=== PATIENT | male | born 1965 | race Caucasian/White ===

== ENCOUNTER 2023-04-19 14:51 | Inpatient (IN) | payer OTHER, SELFPAY ==
[2023-04-19] VITALS (68 sets, daily range): BP systolic 94–151; BP diastolic 65–113; PULSE 83–201; RESP 10–32; TEMP 36.8–37.3; O2SAT 92–148; BMI 24.9; BMI 25.6
--- NOTE | 2023-04-19 15:28 | ECG_ITS ---
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
[2023-04-19 15:34] LABS: Basophils Percent Auto 0.7 % (0.2-2.0); Eosinophils Percent Auto 0.2 % (0.9-7.0); Hematocrit 44.2 % (42.0-54.0); Hemoglobin 15.7 g/dL (14.0-18.0); Immature Granulocytes Abs Auto 0.02 10^3/uL (0.00-0.03); Immature Granulocytes Pct Auto 0.3 % (0.0-0.5); Lymphocytes Absolute Auto 1.4 10^3/uL (1.2-3.8); Lymphocytes Percent Auto 23.6 % (20.5-60.0); Mean Corpuscular HGB Conc 35.5 g/dL (29.9-35.2); Mean Corpuscular Hemoglobin 31.4 pg (25.9-34.0); Mean Corpuscular Volume 88.4 fL (80.0-94.0); Mean Platelet Volume 10.5 fL (9.5-13.5); Monocytes Absolute Auto 0.6 10^3/uL (0.3-0.8); Monocytes Percent Auto 9.7 % (1.7-12.0); Neutrophils Absolute Auto 3.8 10^3/uL (1.4-6.5); Neutrophils Percent Auto 65.5 % (43.0-75.0); Platelet Count 216 10^3/uL (150-450); Red Cell Distribution Width 12.4 % (11.0-15.0); White Blood Count 5.9 10^3/uL (4.0-11.0)
[2023-04-19 15:51] LABS: Alanine Aminotransferase 61 U/L (16-63); Albumin Globulin Ratio 0.8; Albumin Level 3.2 g/dL (3.4-5.0); Alkaline Phosphatase 99 U/L (46-116); Anion Gap 18.7; Aspartate Amino Transferase 38 U/L (15-37); BUN Creatinine Ratio 12.3; Bilirubin Total 0.9 mg/dL (0.2-1.0); Calcium 9.5 mg/dL (8.5-10.1); Carbon Dioxide 23.2 mmol/L (21.0-32.0); Chloride 98 mmol/L (98-107); Estimated GFR (African America >60 (>=60); Estimated GFR (Non-African Ame >60 (>=60); Glucose 108 mg/dL (74-106); Sodium 137 mmol/L (136-145); Total Protein 7.2 g/dL (6.4-8.2)
[2023-04-19 15:52] LABS: Potassium 2.9 mmol/L (3.5-5.1)
--- NOTE | 2023-04-19 16:14 | XR_ITS ---
[address] [address] Patient Name: BERNIE CANO MRN: [id number] date: 1965 Sex: M Assigned Patient Location: ER Current Patient Location: ER Accession/Order Number: [id number] Exam Date: 04/19/2023 16:34 Report Date: 04/19/2023 16:51 At the request of: SOSA JOHNSON Procedure: XR chest 1V EXAMINATION: XR chest 1V HISTORY: Atrial fibrillation COMPARISON: None. TECHNIQUE: Portable chest FINDINGS: The lung parenchyma is free of consolidation or infiltrate. No pneumothorax or pleural effusion. The cardiac, mediastinal and hilar contours are normal. The visualized osseous structures exhibit no gross abnormality. IMPRESSION: No acute cardiopulmonary abnormality. Electronically authenticated by: KAPIL BAILEY Date: 04/19/2023 16:51
--- NOTE | 2023-04-19 16:16 | ED.GENADUL1 ---
HPI - General Adult General Chief complaint: Extremity Injury, Lower Stated complaint: lower extremity pain Time Seen by Provider: 04/19/23 15:28 Source: patient Mode of arrival: walk-in History of Present Illness HPI narrative: chest fluttering and lower leg swelling has been present for some time . He had an episode of fluttering again last night and this morning and decided to come tot he ED fore valuation. he has no PCP. He takes no meds. he denied any prior medical history except rectal bleeding for which he saw a general surgeon and was supposed to have a colonoscopy - but it hasn't been scehduled yet. He and the said that no blood testing was done by the surgeon. He admits to some exertional shortness of breath. Related Data Home Medications Medication Instructions Recorded Confirmed No Known Home Medications 04/19/23 04/19/23 Allergies Allergy/AdvReac Type Severity Reaction Status Date / Time No Known Drug Allergies Allergy Verified 04/19/23 14:57 [facility] Medical History (Updated 04/19/23 @ 17:08 by Florencio Dempsey) Exam Narrative Exam Narrative: Nurses notes and vital signs reviewed and patient is not hypoxic. afebrile General: Well-appearing and in no apparent distress. Skin: Warm, dry, no pallor noted. No rash. Head: Normocephalic, atraumatic. Neck: Supple, non-tender. Eye: Pupils are equal, round and EOMI. No scleral icterus. Ears, Nose, Mouth, and Throat: TM are clear, no nasal mucosal hypertrophy. Oral mucosa is moist, no posterior oropharynx erythema, uvula is mid-line Cardiovascular: atrial fibrillation with short runs that are rapid. Respiratory: No accessory muscle use or respiratory distress. Lungs are clear to auscultation, no wheezing, rales or rhonchi Musculoskeletal: normal ROM, no calf or popliteal tenderness. Bilateral lower extremity edema/swelling GI: Abdomen is soft, non-distended. Normal bowel sounds. No tenderness to palpation. No rebound, guarding, or rigidity noted. Neurological: A&O x4. No cranial nerve dysfunction observed. No truncal ataxia. Moves all extremities. Sensation intact. Psychiatric: Cooperative and interactive. Normal mood and affect. Constitutional Vital Signs - 24 hr 04/19/23 14:58 04/19/23 15:14 04/19/23 15:18 Temperature 98.2 F Pulse Rate Pulse Rate [Monitor] 160 H 153 H Respiratory Rate 24 Blood Pressure Blood Pressure [Left Arm] 136/80 H Pulse Oximetry 100 98 Oxygen Delivery Method Room Air Nasal Cannula Oxygen Delivery Flow Rate 3 04/19/23 15:01 04/19/23 15:06 04/19/23 15:06 Temperature Pulse Rate Pulse Rate [Monitor] Respiratory Rate 26 H 20 Blood Pressure Blood Pressure [Left Arm] Pulse Oximetry 99 99 99 Oxygen Delivery Method Oxygen Delivery Flow Rate 04/19/23 15:17 04/19/23 15:17 04/19/23 16:03 Temperature Pulse Rate 113 H 113 H Pulse Rate [Monitor] Respiratory Rate 16 15 21 Blood Pressure 127/92 H 126/81 H Blood Pressure [Left Arm] Pulse Oximetry 99 99 98 Oxygen Delivery Method Oxygen Delivery Flow Rate 3 04/19/23 16:00 04/19/23 16:25 04/19/23 16:00 Temperature Pulse Rate 117 H 117 H Pulse Rate [Monitor] Respiratory Rate 21 13 Blood Pressure 126/81 H 129/96 H 126/81 H Blood Pressure [Left Arm] Pulse Oximetry 99 99 Oxygen Delivery Method Oxygen Delivery Flow Rate 04/19/23 16:20 04/19/23 16:25 Temperature Pulse Rate 133 H 90 Pulse Rate [Monitor] Respiratory Rate 10 L 19 Blood Pressure 129/96 H 116/83 H Blood Pressure [Left Arm] Pulse Oximetry 98 98 Oxygen Delivery Method Oxygen Delivery Flow Rate Course Vital Signs Vital signs: Vital Signs Temperature 98.2 F 04/19/23 14:58 Pulse Rate 160 H 04/19/23 14:58 Respiratory Rate 24 04/19/23 14:58 Blood Pressure 136/80 H 04/19/23 14:58 Pulse Oximetry 100 04/19/23 14:58 Oxygen Delivery Method Room Air 04/19/23 14:58 Temperature 98.2 F 04/19/23 14:58 Pulse Rate 90 04/19/23 16:25 Respiratory Rate 19 04/19/23 16:25 Blood Pressure 116/83 H 04/19/23 16:25 Pulse Oximetry 98 04/19/23 16:25 Oxygen Delivery Method Nasal Cannula 04/19/23 15:18 Oxygen Delivery Flow Rate 3 04/19/23 16:03 Medical Decision Making MDM Narrative Medical decision making narrative: 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 Blood drawn and sent for evaluation. chest x-ray was obtained. EKG revealed revealed patient to be in rapid atrial fibrillation. This is a new diagnosis for him. BNP was elevated. Troponin was . He was ordered to receive IV Cardizem. He was also ordered to receive IV Lasix. His afib wasn't affected so he was ordered to be placed on cardizem drip. He is also getting a Lovenox injection SQ. He'll need to be admitted for evaluation of this new onset atrial fibrillation. Case discussed with Dr Chen and the patient will be admitted to the ICU. Patient and informed of the results, diagnosis and need for admission. When I informed them of the admission, the told me that the patient is a daily beer drinker - 10 to 12 beers a day - and has never stopped - even for a day. Nurses will ensure the patietn is evaluated for risk of alcohol withdrawl. Lab Data Lab results reviewed: Yes I reviewed the patient's lab results Labs: Lab Results 04/19/23 Range/Units 15:08 WBC 5.9 (4.0-11.0) 10^3/uL RBC 5.00 (4.70-6.10) 10^6/uL Hgb 15.7 (14.0-18.0) g/dL Hct 44.2 (42.0-54.0) % MCV 88.4 (80.0-94.0) fL MCH 31.4 (25.9-34.0) pg MCHC 35.5 H (29.9-35.2) g/dL RDW 12.4 (11.0-15.0) % Plt Count 216 (150-450) 10^3/uL MPV 10.5 (9.5-13.5) fL Neut % (Auto) 65.5 (43.0-75.0) % Lymph % (Auto) 23.6 (20.5-60.0) % [place] % (Auto) 9.7 (1.7-12.0) % Eos % (Auto) 0.2 L (0.9-7.0) % Baso % (Auto) 0.7 (0.2-2.0) % Neut # (Auto) 3.8 (1.4-6.5) 10^3/uL Lymph # (Auto) 1.4 (1.2-3.8) 10^3/uL [place] # (Auto) 0.6 (0.3-0.8) 10^3/uL Eos # (Auto) 0.0 (0.0-0.7) 10^3/uL Baso # (Auto) 0.0 (0.0-0.1) 10^3/uL Abs Immat Gran (auto) 0.02 (0.00-0.03) 10^3/uL Imm/Tot Granulo (auto) 0.3 (0.0-0.5) % Sodium 137 (136-145) mmol/L Potassium 2.9 L* (3.5-5.1) mmol/L Chloride 98 (98-107) mmol/L Carbon Dioxide 23.2 (21.0-32.0) mmol/L Anion Gap 18.7 BUN 14.0 (7.0-18.0) mg/dL Creatinine 1.14 (0.70-1.30) mg/dL Est GFR ( Amer) >60 (>=60) Est GFR (Non-Af Amer) >60 (>=60) BUN/Creatinine Ratio 12.3 Glucose 108 H (74-106) mg/dL Calcium 9.5 (8.5-10.1) mg/dL Total Bilirubin 0.9 (0.2-1.0) mg/dL AST 38 H (15-37) U/L ALT 61 (16-63) U/L Alkaline Phosphatase 99 (46-116) U/L Troponin I High Sens 24.6 (4.0-76.1) pg/mL NT-Pro-B Natriuret Pep 2012.0 H* (<=900.0) pg/mL Total Protein 7.2 (6.4-8.2) g/dL Albumin 3.2 L (3.4-5.0) g/dL Globulin 4.0 g/dL Albumin/Globulin Ratio 0.8 ECG Data Interpretation: EKG interpretation: Emergency Department physician interpretation. Normal sinus rhythm at 142bpm. abnormal right axis deviation. Nonspecific T-wave changes. PVCs noted. No ST segment elevation or depression. Discharge Plan Discharge Chief Complaint: Extremity Injury, Lower Clinical Impression: New onset atrial fibrillation, Edema, peripheral Patient Disposition: Admitted As Inpatient Time of Disposition Decision: 17:07 Prescriptions / Home Meds: No Action No Known Home Medications Referrals: Physician,Non-Staff, MD [Primary Care Provider] - 1 week
[2023-04-19] MEDS: FUROSEMIDE 40 MG/4 ML VIAL IVP ×2 (16:25→19:16)
[2023-04-19] MEDS: DILTIAZEM HCL 25 MG/5 ML VIAL 20 MG IV (16:25)
[2023-04-19 16:31] LABS: Troponin I High Sensitivity 24.6 pg/mL (4.0-76.1)
[2023-04-19] MEDS: POTASSIUM CHLORIDE 10 MEQ ER TABLET 40 MEQ PO (16:43)
[2023-04-19] MEDS: dilTIAZem HCL 125 MG in 0.9 % SODIUM CHLORIDE 100 ML IV (17:15)
[2023-04-19] MEDS: ENOXAPARIN SODIUM 80 MG/0.8 ML SYRINGE SUBQ (17:16)
--- NOTE | 2023-04-19 17:30 | CA_ITS ---
Patient: BERNIE CANO Exam Date: 04/21/2023 : 1965 Gender:M Ordering : DR Shahab Chen . Admission #: [id number] Family : Order #: [id number] CLICK HERE TO VIEW EXAM ECHOCARDIOGRAM REPORT PROCEDURE: CA ECHO DOPPLER COMPLETE INDICATIONS: afib, leg edema COMPARISON: None. DESCRIPTION: COMPLETE ECHOCARDIOGRAM Real-time transthoracic echocardiography with 2D, M-mode, spectral and color flow Doppler performed. QUALITY: Technical quality was good. LEFT VENTRICLE: Normal chamber size. Normal left ventricular wall thickness. LV EF: Global left ventricular systolic function is moderately to severely reduced; visually estimated ejection fraction is 25 to 30%. Global hypokinesis. DIASTOLIC: Not adequately assessed due to heart rhythm. ATRIAL SEPTUM: Inadequately seen. LEFT ATRIUM: Severe dilatation. RIGHT ATRIUM: Severe dilatation. RIGHT VENTRICLE: Moderate dilatation. Severely decreased right ventricular systolic function. TRICUSPID VALVE: Normal mobility and thickness. Moderate to severe regurgitation. Moderate pulmonary hypertension. RVSP 48mmHg MITRAL VALVE: Mildly thickened with normal mobility. No evidence of mitral valve stenosis. There is no mitral annular calcification. Moderate to severe mitral regurgitation. AORTIC VALVE: Normal trileaflet appearance. Thickened aortic valve. Normal leaflet mobility. No evidence of aortic valve stenosis. Trivial aortic regurgitation. AORTIC ROOT: Normal diameter and appearance. PULMONIC VALVE: Normal thickness and mobility. No stenosis. Trivial regurgitation. PERICARDIUM: No evidence of pericardial effusion. IVC: Partial collapse with mild dilatation measuring 2.6cm CONCLUSION: 1. Global left ventricular systolic function is moderately to severely reduced; visually estimated ejection fraction is 25 to 30% 2. Severe biatrial enlargement 3. The right ventricle is moderately dilated with severely reduced systolic function 4. Moderate to severe tricuspid regurgitation 5. Moderately elevated right ventricular systolic pressure; RVSP 40 mmHg 6. Moderate to severe mitral regurgitation Adult Echocardiography Procedure Report Left Ventricle LVEDD (3.7 - 5.6 cm): 5.64 cm LVESD (2.2 - 4.0 cm): 4.57 cm LVIVS thickness (0.6 - 1.2 cm): 0.87 cm LVPW thickness (0.5 - 1.0 cm): 0.92 cm e': 0.08 m/s E - e': 13.74 LVOT Max Gradient: 1.09 mm[Hg] LVOT Area (cm2): 0.52 m/s Peak Velocity (LVOT): 0.52 m/s Mean Velocity (LVOT): 0.40 m/s LVOT Diameter 1.73 cm Left Atrium LA Volume Index (2D A2C): 73.54 ml/m2 Left Atrium Systolic Dimension: 4.51 cm Mitral Valve Mitral Valve E-Wave Peak Velocity: 1.08 m/s Right Ventricle RV Internal Diastolic Dimension: 4.71 cm Aorta AO Root Diam: 2.76 cm Ascending Ao Diam: 2.83 cm Aortic Valve AoV Area (Peak Jordan): 1.23 cm2, 1.23 cm2 AoV Area (VTI): 1.15 cm2, 1.15 cm2 Deceleration [place]: 1.09 m/s2 Pressure Half-Time: 859.33 ms Peak Velocity(Antegrade Flow): 1.00 m/s Peak Gradient(Antegrade Flow): 3.97 mm[Hg] Mean Velocity(Antegrade Flow): 0.73 m/s Mean Gradient(Antegrade Flow): 2.35 mm[Hg] Velocity Time Integral: 14.80 cm Tricuspid Valve Peak Velocity (Regurgitant Flow): 2.85 m/s, 2.69 m/s, 2.55 m/s Pulmonic Valve Peak Velocity: 0.50 m/s Peak Gradient: 1.17 mm[Hg], 0.84 mm[Hg] Right Atrium Right Atrium Systolic Pressure: 127.26 ml, 127.26 ml Dictated by: Lisa Pelaez M.D. on 04/24/2023 at 12:47 Approved by: Lisa Pelaez M.D. on 04/24/2023 at 12:52
[2023-04-19] MEDS: DILTIAZEM HCL 25 MG/5 ML VIAL IV (17:39)
[2023-04-20] VITALS (27 sets, daily range): BP systolic 101–137; BP diastolic 69–91; PULSE 69–115; RESP 12–25; O2SAT 91–97
[2023-04-20] MEDS: dilTIAZem HCL 125 MG in 0.9 % SODIUM CHLORIDE 100 ML 15 MG IV ×3 (01:30→17:01)
[2023-04-20 05:35] LABS: Basophils Absolute Auto 0.1 10^3/uL (0.0-0.1); Basophils Percent Auto 0.8 % (0.2-2.0); Eosinophils Absolute Auto 0.1 10^3/uL (0.0-0.7); Eosinophils Percent Auto 1.1 % (0.9-7.0); Hematocrit 42.3 % (42.0-54.0); Hemoglobin 14.6 g/dL (14.0-18.0); Immature Granulocytes Abs Auto 0.01 10^3/uL (0.00-0.03); Immature Granulocytes Pct Auto 0.2 % (0.0-0.5); Lymphocytes Absolute Auto 1.7 10^3/uL (1.2-3.8); Lymphocytes Percent Auto 26.1 % (20.5-60.0); Mean Corpuscular HGB Conc 34.5 g/dL (29.9-35.2); Mean Corpuscular Hemoglobin 31.2 pg (25.9-34.0); Mean Corpuscular Volume 90.4 fL (80.0-94.0); Mean Platelet Volume 10.7 fL (9.5-13.5); Monocytes Absolute Auto 0.8 10^3/uL (0.3-0.8); Monocytes Percent Auto 12.4 % (1.7-12.0); Neutrophils Percent Auto 59.4 % (43.0-75.0); Platelet Count 211 10^3/uL (150-450); Red Blood Count 4.68 10^6/uL (4.70-6.10); Red Cell Distribution Width 12.5 % (11.0-15.0); White Blood Count 6.6 10^3/uL (4.0-11.0)
[2023-04-20 05:58] LABS: Anion Gap 12.9; BUN Creatinine Ratio 11.5; Calcium 9.1 mg/dL (8.5-10.1); Carbon Dioxide 28.1 mmol/L (21.0-32.0); Chloride 99 mmol/L (98-107); Chol HDL Ratio 2.2; Cholesterol 142 mg/dL (<=200); Estimated GFR (African America >60 (>=60); Estimated GFR (Non-African Ame >60 (>=60); Glucose 107 mg/dL (74-106); HDL Cholesterol 65 mg/dL (40-60); Sodium 137 mmol/L (136-145); Triglycerides 79 mg/dL (<=150); VLDL CHOLESTEROL 15.8 mg/dL
--- NOTE | 2023-04-20 06:00 | ECG_ITS ---
[facility] Test Date: 2023-04-20 Pat Name: Reinier Garcia Department: Room: 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
--- NOTE | 2023-04-20 06:30 | XR_ITS ---
[address] [address] Patient Name: BERNIE CANO MRN: [id number] date: 1965 Sex: M Assigned Patient Location: ICU Current Patient Location: ICU Accession/Order Number: [id number] Exam Date: 04/20/2023 06:15 Report Date: 04/20/2023 08:22 At the request of: ASIF HARRELL Procedure: XR chest 2V Exam: Radiographs: XR chest 2V Reason for exam: leg edema Comparison: Chest x-ray from yesterday IMPRESSION: Small amount of atelectasis, infiltrate or scarring in the left lung base. Hyperinflation and probable emphysematous changes throughout both lungs. Pulmonary venous hypertension. Cardiomegaly. Chronic appearing lower thoracic compression fracture with mild height loss. Remainder unremarkable. Electronically authenticated by: FAISAL POLLARD Date: 04/20/2023 08:22
[2023-04-20] MEDS: dilTIAZem HCL 125 MG in 0.9 % SODIUM CHLORIDE 100 ML IV (10:13)
[2023-04-20] MEDS: FUROSEMIDE 40 MG/4 ML VIAL IVP ×2 (12:44→21:57)
--- NOTE | 2023-04-20 13:58 | P.HP_ITS ---
H&P: HPI History of Present Illness Chief complaint: lower extremity pain, NEW ONSET A-FIB WITH RVR Narrative: 57 y/o male with no significant past medical history presents to ER with leg swelling and heart racing. Reports palpitations off and on for about 1 week. Initially mild and only lasted few minutes. Noticed heart racing and mild discomfort in chest. Mild SOB. Not lightheaded and no diaphoresis. Symptoms persisted overnight and in am noticed severe swelling of both feet. To ER and found rapid afib. Chest x-ray normal but BNP elevated. Given IV cardizem and lasix. Pulse improved but still elevated and admitted. Started cardizem drip and IV lasix. Improved overnight and less edema. Remains in afib but normal pulse. Review of Systems ROS Constitutional Denies: fever, chills or night sweats Cardiovascular Reports: chest pain, palpitations and edema; Denies: lightheadedness Respiratory Denies: shortness of breath, cough or wheezing Gastrointestinal Denies: abdominal pain, nausea, vomiting or diarrhea Genitourinary Denies: painful urination [facility] Medical History (Updated 04/20/23 @ 08:51 by Shahab Chen MD) Surgical History (Updated 04/19/23 @ 18:18 by Palmira Stevens RN) Family History (Updated 04/19/23 @ 18:19 by Palmira Stevens RN) Mother Family history of cancer Social History (Updated 04/19/23 @ 18:22 by Palmira Stevens RN) Within the past year, how often did you have a drink containing alcohol: 4 or more times a week Within the past year, how many standard drinks containing alcohol did you have on a typical day: 10 or more Within the past year, how often did you have six or more drinks on one occasion: daily or almost daily Total score: 12 Score interpretation: A score of 4 or more indicates drinking is likely to affect patient's safety. Smoking status: Current every day smoker Non-prescribed substance use: denies use Highest level of school completed/degree received: 12th grade, no diploma Are you now , , , , never or living with a partner: In a typical week, how many times do you talk on the telephone with family, friends, or neighbors: 3 or more times per week How often do you get together with friends or relatives: twice per week How often do you attend religious or hinduism services: never Do you belong to any clubs or organizations such as religious groups unions, fraternal or athletic groups, or school groups: no Total score: 1 Score interpretation: A score of less than or equal to 1 indicates the most socially isolated. Little interest or pleasure in doing things: not at all Feeling down, depressed, or hopeless: not at all Feel stressed/tense/nervous/anxious/difficulty sleeping: not at all Do you think of yourself as: straight/heterosexual Gender Identity: male Meds Home Medications and Allergies Home Medications Medication Instructions Recorded Confirmed Type No Known Home Medications 04/19/23 04/19/23 History Allergies Allergy/AdvReac Type Severity Reaction Status Date / Time No Known Drug Allergies Allergy Verified 04/19/23 14:57 Exam Constitutional Vital Signs - 24 hr 04/19/23 14:58 04/19/23 15:14 04/19/23 15:18 Temperature 98.2 F Pulse Rate Pulse Rate [Monitor] 160 H 153 H Respiratory Rate 24 Blood Pressure Blood Pressure [Left Arm] 136/80 H Pulse Oximetry 100 98 Oxygen Delivery Method Room Air Nasal Cannula Oxygen Delivery Flow Rate 3 04/19/23 15:01 04/19/23 15:06 04/19/23 15:06 Temperature Pulse Rate Pulse Rate [Monitor] Respiratory Rate 26 H 20 Blood Pressure Blood Pressure [Left Arm] Pulse Oximetry 99 99 99 Oxygen Delivery Method Oxygen Delivery Flow Rate 04/19/23 15:17 04/19/23 15:17 04/19/23 16:03 Temperature Pulse Rate 113 H 113 H Pulse Rate [Monitor] Respiratory Rate 16 15 21 Blood Pressure 127/92 H 126/81 H Blood Pressure [Left Arm] Pulse Oximetry 99 99 98 Oxygen Delivery Method Oxygen Delivery Flow Rate 3 04/19/23 16:00 04/19/23 16:25 04/19/23 16:00 Temperature Pulse Rate 117 H 117 H Pulse Rate [Monitor] Respiratory Rate 21 13 Blood Pressure 126/81 H 129/96 H 126/81 H Blood Pressure [Left Arm] Pulse Oximetry 99 99 Oxygen Delivery Method Oxygen Delivery Flow Rate 04/19/23 16:20 04/19/23 16:25 04/19/23 17:15 Temperature Pulse Rate 133 H 90 Pulse Rate [Monitor] Respiratory Rate 10 L 19 Blood Pressure 129/96 H 116/83 H 117/79 Blood Pressure [Left Arm] Pulse Oximetry 98 98 Oxygen Delivery Method Oxygen Delivery Flow Rate 04/19/23 16:25 04/19/23 16:31 04/19/23 16:35 Temperature Pulse Rate 111 H 96 H 137 H Pulse Rate [Monitor] Respiratory Rate 15 17 19 Blood Pressure 116/83 H 108/76 115/86 H Blood Pressure [Left Arm] Pulse Oximetry 99 98 99 Oxygen Delivery Method Oxygen Delivery Flow Rate 04/19/23 16:40 04/19/23 16:46 04/19/23 16:50 Temperature Pulse Rate 163 H 151 H 113 H Pulse Rate [Monitor] Respiratory Rate 32 H 13 16 Blood Pressure 102/69 151/113 H 139/93 H Blood Pressure [Left Arm] Pulse Oximetry 95 100 99 Oxygen Delivery Method Oxygen Delivery Flow Rate 04/19/23 16:55 04/19/23 17:01 04/19/23 17:06 Temperature Pulse Rate 138 H 189 H 134 H Pulse Rate [Monitor] Respiratory Rate 22 11 L 14 Blood Pressure 102/78 125/100 H 139/81 H Blood Pressure [Left Arm] Pulse Oximetry 100 99 99 Oxygen Delivery Method Oxygen Delivery Flow Rate 04/19/23 17:10 04/19/23 17:15 04/19/23 17:23 Temperature Pulse Rate 156 H 183 H Pulse Rate [Monitor] Respiratory Rate 12 17 Blood Pressure 122/102 H 117/79 117/79 Blood Pressure [Left Arm] Pulse Oximetry 99 98 Oxygen Delivery Method Oxygen Delivery Flow Rate 04/19/23 17:15 04/19/23 17:22 04/19/23 17:25 Temperature Pulse Rate 173 H 201 H 185 H Pulse Rate [Monitor] Respiratory Rate 22 13 Blood Pressure 117/79 Blood Pressure [Left Arm] Pulse Oximetry 96 92 L 100 Oxygen Delivery Method Oxygen Delivery Flow Rate 04/19/23 17:30 04/19/23 17:30 04/19/23 17:30 Temperature Pulse Rate 155 H 170 H 162 H Pulse Rate [Monitor] Respiratory Rate Blood Pressure 129/80 H 129/80 H Blood Pressure [Left Arm] Pulse Oximetry 97 96 97 Oxygen Delivery Method Oxygen Delivery Flow Rate 04/19/23 17:36 04/19/23 17:39 04/19/23 17:36 Temperature Pulse Rate 144 H 95 H Pulse Rate [Monitor] Respiratory Rate Blood Pressure 109/65 109/65 109/65 Blood Pressure [Left Arm] Pulse Oximetry 96 97 Oxygen Delivery Method Oxygen Delivery Flow Rate 04/19/23 18:02 04/19/23 18:09 04/19/23 18:09 Temperature Pulse Rate 96 H 131 H 100 H Pulse Rate [Monitor] Respiratory Rate Blood Pressure 94/80 H Blood Pressure [Left Arm] Pulse Oximetry 97 Oxygen Delivery Method Oxygen Delivery Flow Rate 04/19/23 18:12 04/19/23 18:20 04/19/23 18:20 Temperature 99.2 F Pulse Rate 137 H 84 Pulse Rate [Monitor] 100 H Respiratory Rate 16 Blood Pressure 127/85 H Blood Pressure [Left Arm] 131/89 H Pulse Oximetry 98 97 96 Oxygen Delivery Method Room Air Room Air Oxygen Delivery Flow Rate 04/19/23 19:16 04/19/23 21:02 04/19/23 22:52 Temperature Pulse Rate 121 H Pulse Rate [Monitor] 93 H Respiratory Rate Blood Pressure 135/85 H Blood Pressure [Left Arm] Pulse Oximetry Oxygen Delivery Method Oxygen Delivery Flow Rate 04/19/23 22:52 04/20/23 00:00 04/19/23 18:12 Temperature Pulse Rate 93 H 96 H Pulse Rate [Monitor] Respiratory Rate 20 14 14 Blood Pressure 127/85 H Blood Pressure [Left Arm] Pulse Oximetry 96 96 Oxygen Delivery Method Room Air Oxygen Delivery Flow Rate 04/19/23 18:25 04/19/23 18:30 04/19/23 18:40 Temperature Pulse Rate 87 117 H 123 H Pulse Rate [Monitor] Respiratory Rate 17 Blood Pressure 126/89 H 131/89 H 144/108 H Blood Pressure [Left Arm] Pulse Oximetry 97 Oxygen Delivery Method Oxygen Delivery Flow Rate 04/19/23 18:51 04/19/23 19:02 04/19/23 19:10 Temperature Pulse Rate 97 H 87 94 H Pulse Rate [Monitor] Respiratory Rate 19 20 23 Blood Pressure 131/79 H 140/95 H 135/85 H Blood Pressure [Left Arm] Pulse Oximetry 99 95 96 Oxygen Delivery Method Oxygen Delivery Flow Rate 04/19/23 19:21 04/19/23 19:30 04/19/23 19:41 Temperature Pulse Rate 104 H 105 H Pulse Rate [Monitor] Respiratory Rate 17 20 Blood Pressure 128/88 H 126/86 H 151/89 H Blood Pressure [Left Arm] Pulse Oximetry 97 Oxygen Delivery Method Oxygen Delivery Flow Rate 04/19/23 19:51 04/19/23 20:00 04/19/23 20:10 Temperature Pulse Rate 109 H 113 H 110 H Pulse Rate [Monitor] Respiratory Rate 27 H 18 16 Blood Pressure 129/99 H 119/79 118/82 H Blood Pressure [Left Arm] Pulse Oximetry Oxygen Delivery Method Oxygen Delivery Flow Rate 04/19/23 20:20 04/19/23 20:30 04/19/23 20:41 Temperature Pulse Rate 101 H 94 H 85 Pulse Rate [Monitor] Respiratory Rate 15 18 17 Blood Pressure 128/87 H 129/82 H 117/88 H Blood Pressure [Left Arm] Pulse Oximetry Oxygen Delivery Method Oxygen Delivery Flow Rate 04/19/23 20:50 04/19/23 21:00 04/19/23 21:10 Temperature Pulse Rate 133 H 112 H 139 H Pulse Rate [Monitor] Respiratory Rate 20 21 20 Blood Pressure 112/86 H 112/79 123/81 H Blood Pressure [Left Arm] Pulse Oximetry Oxygen Delivery Method Oxygen Delivery Flow Rate 04/19/23 21:20 04/19/23 21:30 04/19/23 21:40 Temperature Pulse Rate 99 H 100 H 153 H Pulse Rate [Monitor] Respiratory Rate 17 17 18 Blood Pressure 119/70 125/86 H 119/84 H Blood Pressure [Left Arm] Pulse Oximetry Oxygen Delivery Method Oxygen Delivery Flow Rate 04/19/23 21:50 04/19/23 22:00 04/19/23 22:10 Temperature Pulse Rate 101 H 117 H 88 Pulse Rate [Monitor] Respiratory Rate 20 18 16 Blood Pressure 114/86 H 111/78 111/82 H Blood Pressure [Left Arm] Pulse Oximetry Oxygen Delivery Method Oxygen Delivery Flow Rate 04/19/23 22:20 04/19/23 22:30 04/19/23 22:41 Temperature Pulse Rate 97 H 99 H 92 H Pulse Rate [Monitor] Respiratory Rate 15 20 15 Blood Pressure 122/78 H 121/78 H 103/71 Blood Pressure [Left Arm] Pulse Oximetry Oxygen Delivery Method Oxygen Delivery Flow Rate 04/19/23 22:50 04/19/23 23:00 04/19/23 23:10 Temperature Pulse Rate 94 H 106 H 117 H Pulse Rate [Monitor] Respiratory Rate 21 23 25 H Blood Pressure 115/76 106/74 114/80 H Blood Pressure [Left Arm] Pulse Oximetry Oxygen Delivery Method Oxygen Delivery Flow Rate 04/19/23 23:20 04/19/23 23:30 04/19/23 23:34 Temperature Pulse Rate 108 H 83 83 Pulse Rate [Monitor] Respiratory Rate 15 15 20 Blood Pressure 112/68 113/75 106/75 Blood Pressure [Left Arm] Pulse Oximetry 97 94 L Oxygen Delivery Method Oxygen Delivery Flow Rate 04/20/23 00:01 04/20/23 01:00 04/20/23 02:00 Temperature Pulse Rate 96 H 78 84 Pulse Rate [Monitor] Respiratory Rate 15 19 Blood Pressure 111/75 114/78 Blood Pressure [Left Arm] Pulse Oximetry 94 L 95 Oxygen Delivery Method Oxygen Delivery Flow Rate 04/20/23 04:00 04/20/23 01:00 04/20/23 02:00 Temperature Pulse Rate 76 74 80 Pulse Rate [Monitor] Respiratory Rate 18 18 Blood Pressure 114/78 105/71 Blood Pressure [Left Arm] Pulse Oximetry 91 L 96 Oxygen Delivery Method Oxygen Delivery Flow Rate 04/20/23 03:00 04/20/23 04:00 04/20/23 04:00 Temperature Pulse Rate 81 76 81 Pulse Rate [Monitor] Respiratory Rate 13 22 16 Blood Pressure 130/88 H 107/72 107/72 Blood Pressure [Left Arm] Pulse Oximetry 97 96 Oxygen Delivery Method Oxygen Delivery Flow Rate 04/20/23 04:00 04/20/23 08:31 04/20/23 08:31 Temperature Pulse Rate 78 86 Pulse Rate [Monitor] 75 Respiratory Rate 18 16 Blood Pressure 107/72 Blood Pressure [Left Arm] Pulse Oximetry 92 L Oxygen Delivery Method Oxygen Delivery Flow Rate 04/20/23 10:13 04/20/23 12:44 04/20/23 04:00 Temperature Pulse Rate 72 Pulse Rate [Monitor] Respiratory Rate 14 Blood Pressure 122/81 H 102/77 107/72 Blood Pressure [Left Arm] Pulse Oximetry 96 Oxygen Delivery Method Oxygen Delivery Flow Rate 04/20/23 08:25 04/20/23 09:00 04/20/23 10:01 Temperature Pulse Rate 74 69 105 H Pulse Rate [Monitor] Respiratory Rate 17 13 23 Blood Pressure 110/72 109/69 122/81 H Blood Pressure [Left Arm] Pulse Oximetry 92 L Oxygen Delivery Method Oxygen Delivery Flow Rate 04/20/23 11:00 04/20/23 12:00 07/02/23 13:00 Temperature Pulse Rate 85 100 H 95 H Pulse Rate [Monitor] Respiratory Rate 19 19 18 Blood Pressure 107/77 102/77 118/80 H Blood Pressure [Left Arm] Pulse Oximetry 95 97 94 L Oxygen Delivery Method Oxygen Delivery Flow Rate Documenting provider has reviewed patient's vital signs: yes Common normals: no apparent distress, oriented x3 and alert HENMT Common normals: normocephalic Eye Common normals: PERRL and EOMs intact bilaterally Respiratory Common normals: normal respiratory effort and clear to auscultation bilaterally Cardio Common normals: regular rate, no gallops, no murmurs and no rub Rhythm: abnormal rhythm irregularly irregular GI Common normals: Normal to inspection, nondistended, normoactive bowel sounds present and non-tender Extremity General: edema (1+ bipedal edema) Results Labs Labs: Short CBC 04/19/23 04/20/23 Range/Units 15:08 04:23 WBC 5.9 6.6 (4.0-11.0) 10^3/uL Hgb 15.7 14.6 (14.0-18.0) g/dL Hct 44.2 42.3 (42.0-54.0) % Plt Count 216 211 (150-450) 10^3/uL BMP 04/19/23 04/20/23 15:08 04:23 Sodium 137 137 Potassium 2.9 L* 3.0 L Chloride 98 99 Carbon Dioxide 23.2 28.1 BUN 14.0 13.0 Creatinine 1.14 1.13 Glucose 108 H 107 H Calcium 9.5 9.1 Liver Function 04/19/23 Range/Units 15:08 Total Bilirubin 0.9 (0.2-1.0) mg/dL AST 38 H (15-37) U/L ALT 61 (16-63) U/L Alkaline Phosphatase 99 (46-116) U/L Albumin 3.2 L (3.4-5.0) g/dL Assessment and Plan Assessment and Plan (1) Rapid atrial fibrillation: (2) Edema, peripheral: (3) Hypokalemia: Plan 1. Afib with RVR 2. LE edema 3. Hypokalemia Improved with IV cardizem but remains in afib. Start oral metoprolol and wean off drip. Check echo to assess EF. Anticoagulate with lovenox and will need oral anticoagulation upon discharge. Continue IV lasix for edema. Replace potassium. Will need over 2 midnights in the hospital.
[2023-04-20] MEDS: POTASSIUM CHLORIDE 10 MEQ ER TABLET 20 MEQ PO (21:56)
[2023-04-20] MEDS: METOPROLOL TARTRATE 25 MG TABLET PO (21:57)
[2023-04-20] MEDS: ENOXAPARIN SODIUM 40 MG/0.4 ML SYRINGE SUBQ (21:57)
[2023-04-21] VITALS (95 sets, daily range): BP systolic 101–128; BP diastolic 72–91; PULSE 72–168; RESP 4–40; TEMP 36.3–36.8; O2SAT 77–99; BMI 25.6
[2023-04-21] MEDS: dilTIAZem HCL 125 MG in 0.9 % SODIUM CHLORIDE 100 ML 10 MG IV (03:12)
[2023-04-21 04:53] LABS: Basophils Percent Auto 0.6 % (0.2-2.0); Eosinophils Absolute Auto 0.1 10^3/uL (0.0-0.7); Hemoglobin 14.4 g/dL (14.0-18.0); Immature Granulocytes Abs Auto 0.01 10^3/uL (0.00-0.03); Immature Granulocytes Pct Auto 0.1 % (0.0-0.5); Lymphocytes Absolute Auto 1.8 10^3/uL (1.2-3.8); Lymphocytes Percent Auto 24.5 % (20.5-60.0); Mean Corpuscular HGB Conc 34.3 g/dL (29.9-35.2); Mean Corpuscular Volume 90.5 fL (80.0-94.0); Mean Platelet Volume 10.8 fL (9.5-13.5); Monocytes Absolute Auto 0.7 10^3/uL (0.3-0.8); Monocytes Percent Auto 10.2 % (1.7-12.0); Neutrophils Absolute Auto 4.6 10^3/uL (1.4-6.5); Neutrophils Percent Auto 63.6 % (43.0-75.0); Platelet Count 198 10^3/uL (150-450); Red Blood Count 4.64 10^6/uL (4.70-6.10); Red Cell Distribution Width 12.7 % (11.0-15.0); White Blood Count 7.3 10^3/uL (4.0-11.0)
[2023-04-21 05:05] LABS: BUN Creatinine Ratio 10.3; Carbon Dioxide 29.2 mmol/L (21.0-32.0); Chloride 100 mmol/L (98-107); Estimated GFR (African America >60 (>=60); Estimated GFR (Non-African Ame >60 (>=60); Glucose 129 mg/dL (74-106); Potassium 3.2 mmol/L (3.5-5.1); Sodium 137 mmol/L (136-145)
[2023-04-21] MEDS: METOPROLOL TARTRATE 25 MG TABLET PO ×2 (09:05→11:10)
[2023-04-21] MEDS: FUROSEMIDE 40 MG/4 ML VIAL IVP (09:05)
[2023-04-21] MEDS: POTASSIUM CHLORIDE 10 MEQ ER TABLET 20 MEQ PO ×2 (09:06→20:40)
[2023-04-21] MEDS: APIXABAN 5 MG TABLET PO ×2 (09:09→20:40)
--- NOTE | 2023-04-21 10:29 | XR_ITS ---
[address] [address] Patient Name: BERNIE CANO MRN: [id number] date: 1965 Sex: M Assigned Patient Location: ICU Current Patient Location: ICU Accession/Order Number: [id number] Exam Date: 04/21/2023 10:35 Report Date: 04/21/2023 11:22 At the request of: ASIF HARRELL Procedure: XR lumbar spine 2-3V EXAM: XR lumbar spine 2-3V HISTORY: back pain COMPARISON: None. TECHNIQUE: 2 views FINDINGS: Satisfactory alignment. Multilevel wedging deformity of T11-L2 vertebral body. Multilevel endplate degenerative changes, disc disease, and anterior spurring of the visualized spine. No acute fracture or subluxation. Unremarkable soft tissues. IMPRESSION: Degenerative changes as above. Electronically authenticated by: TARA FIORE Date: 04/21/2023 11:22
--- NOTE | 2023-04-21 10:54 | PM.PN ---
Progress Note: Subjective Subjective Interval history: Patient stable this am. Remains on cardizem drip but pulse improved. Still occasional palpitations but no pain or pressure. No SOB. Developed weakness in right foot and not able to move toes. Very difficult to walk. No history of back problems but reports increased pain from laying in bed. Edema improved. Reports drinking 4-5, 20 oz cans of beer daily. Starting to feel agitated this am. Normal appetite and no emesis or diarrhea. Exam Constitutional Vital Signs - 24 hr 04/20/23 12:44 04/20/23 11:00 04/20/23 12:00 Temperature Pulse Rate 85 100 H Pulse Rate [Monitor] Respiratory Rate 19 19 Blood Pressure 102/77 107/77 102/77 Blood Pressure [Left Arm] Pulse Oximetry 95 97 Oxygen Delivery Method 04/20/23 13:00 04/20/23 16:21 04/20/23 16:21 Temperature Pulse Rate 95 H 115 H Pulse Rate [Monitor] 88 Respiratory Rate 18 Blood Pressure 118/80 H Blood Pressure [Left Arm] Pulse Oximetry 94 L Oxygen Delivery Method 04/20/23 13:00 04/20/23 14:00 04/20/23 15:01 Temperature Pulse Rate 93 H 94 H 109 H Pulse Rate [Monitor] Respiratory Rate 25 H 17 21 Blood Pressure 118/80 H 115/82 H 133/78 H Blood Pressure [Left Arm] Pulse Oximetry 93 L 93 L 92 L Oxygen Delivery Method 04/20/23 16:00 04/20/23 20:00 04/20/23 20:00 Temperature Pulse Rate 106 H 112 H Pulse Rate [Monitor] 87 Respiratory Rate 12 14 Blood Pressure 113/81 H Blood Pressure [Left Arm] Pulse Oximetry 93 L Oxygen Delivery Method 04/20/23 16:00 04/20/23 17:00 04/20/23 18:00 Temperature Pulse Rate 94 H 87 Pulse Rate [Monitor] Respiratory Rate 23 20 Blood Pressure 113/81 H 105/75 101/74 Blood Pressure [Left Arm] Pulse Oximetry 92 L Oxygen Delivery Method 04/20/23 19:13 04/20/23 20:00 04/20/23 21:57 Temperature Pulse Rate 90 94 H Pulse Rate [Monitor] Respiratory Rate 19 23 Blood Pressure 113/91 H 129/90 H 137/84 H Blood Pressure [Left Arm] Pulse Oximetry 94 L 94 L Oxygen Delivery Method 04/21/23 00:00 04/20/23 20:00 04/20/23 21:00 Temperature Pulse Rate 88 85 89 Pulse Rate [Monitor] Respiratory Rate 17 22 Blood Pressure 129/90 H 137/84 H Blood Pressure [Left Arm] Pulse Oximetry 94 L 91 L Oxygen Delivery Method 04/20/23 22:00 04/20/23 23:00 04/21/23 00:00 Temperature Pulse Rate 104 H 79 97 H Pulse Rate [Monitor] Respiratory Rate 18 17 18 Blood Pressure 112/90 H 114/83 H 123/86 H Blood Pressure [Left Arm] Pulse Oximetry Oxygen Delivery Method 04/21/23 01:00 04/21/23 04:00 04/21/23 04:00 Temperature Pulse Rate 77 77 Pulse Rate [Monitor] 82 Respiratory Rate 20 14 Blood Pressure 111/79 Blood Pressure [Left Arm] Pulse Oximetry 95 Oxygen Delivery Method 04/21/23 01:00 04/21/23 02:00 04/21/23 03:00 Temperature Pulse Rate 81 83 74 Pulse Rate [Monitor] Respiratory Rate 18 20 24 Blood Pressure 111/79 104/77 108/77 Blood Pressure [Left Arm] Pulse Oximetry 98 90 L 94 L Oxygen Delivery Method 04/21/23 04:00 04/21/23 05:00 04/21/23 05:00 Temperature Pulse Rate 79 77 84 Pulse Rate [Monitor] Respiratory Rate 20 18 18 Blood Pressure 104/90 H 125/82 H 125/82 H Blood Pressure [Left Arm] Pulse Oximetry 94 L 94 L 93 L Oxygen Delivery Method 04/21/23 06:00 04/21/23 09:05 04/21/23 08:30 Temperature Pulse Rate 80 Pulse Rate [Monitor] 82 Respiratory Rate Blood Pressure 105/72 Blood Pressure [Left Arm] Pulse Oximetry Oxygen Delivery Method 04/21/23 08:30 04/21/23 10:17 Temperature 98.1 F Pulse Rate 95 H 84 Pulse Rate [Monitor] Respiratory Rate 18 Blood Pressure Blood Pressure [Left Arm] 105/72 Pulse Oximetry 96 Oxygen Delivery Method Room Air Documenting provider has reviewed patient's vital signs: yes Common normals: oriented x3 and alert General appearance: anxious HENMT Common normals: normocephalic Eye Common normals: PERRL and EOMs intact bilaterally Respiratory Common normals: clear to auscultation bilaterally Cardio Common normals: regular rate, regular rhythm, no gallops, no murmurs and no rub GI Common normals: Normal to inspection, nondistended, normoactive bowel sounds present and non-tender Extremity General: no edema Right lower extremity: foot and digits (Not able to wiggle toes) Progress Note: Objective Labs Labs: Short CBC 04/21/23 Range/Units 04:08 WBC 7.3 (4.0-11.0) 10^3/uL Hgb 14.4 (14.0-18.0) g/dL Hct 42.0 (42.0-54.0) % Plt Count 198 (150-450) 10^3/uL BMP 04/21/23 04:08 Sodium 137 Potassium 3.2 L Chloride 100 Carbon Dioxide 29.2 BUN 12.0 Creatinine 1.16 Glucose 129 H Calcium 9.0 Progress Note: A&P Assessment and Plan (1) Rapid atrial fibrillation: (2) Edema, peripheral: (3) Hypokalemia: Plan 1. Afib with RVR? 2. LE edema? 3. Weakness right foot 4. Acohol abuse 5. Hypokalemia Remains in afib but pulse improved. Increase metoprolol and stop cardizem. History of alcohol abuse and developing agitation. Start CIWA with librium PRN. Check vitamins and start MVI, thiamine, and folate. Weakness in foot may be related to B12 or folate. Check x-ray lumbar to assess for DDD. Start PT. Stop IV lasix and change to PO. Stop lovenox and start Eliquis.
[2023-04-21] MEDS: THIAMINE MONONITRATE (VIT B1) 100 MG TABLET PO (11:10)
[2023-04-21] MEDS: MULTIVITAMIN TABLET 400 TAB PO (11:10)
[2023-04-21] MEDS: FOLIC ACID 1 MG TABLET PO (11:10)
--- NOTE | 2023-04-21 13:41 | SWNOTE1 ---
SW met with pt to discuss dc needs. Pt lives at home with his sister. He has another sister as well that can help as needed. Pt is independent at home and does not use any DME. He did talk about his legs/feet hurting and he does have access to walkers/canes if needed. MOHINDER did address pt's drinking. Pt admitted to drinking 8 tall boys a day, but said he pours some of it out at the end as it gets warm. Pt feels he then drinks a total of about 6. MOHINDER did offer AA meeting and inpt/outpt rehab resources. At this time pt refuses any kind of resources. SW to follow as needed.
--- NOTE | 2023-04-21 16:00 | CM.NOTE ---
Rounds made with Dr. Chen, no discharge today. PT to evaluate pt.
[2023-04-21] MEDS: METOPROLOL TARTRATE 5 MG/5 ML VIAL IV (18:34)
[2023-04-21] MEDS: METOPROLOL TARTRATE 25 MG TABLET 50 MG PO (20:40)
[2023-04-22] VITALS (95 sets, daily range): BP systolic 84–137; BP diastolic 70–96; PULSE 74–170; RESP 10–19; TEMP 36.6; O2SAT 96–125
[2023-04-22 03:07] LABS: Vitamin B12 750 pg/mL (232-1245)
[2023-04-22 04:46] LABS: Basophils Percent Auto 0.6 % (0.2-2.0); Eosinophils Absolute Auto 0.1 10^3/uL (0.0-0.7); Eosinophils Percent Auto 1.8 % (0.9-7.0); Hematocrit 41.1 % (42.0-54.0); Hemoglobin 13.6 g/dL (14.0-18.0); Immature Granulocytes Abs Auto 0.02 10^3/uL (0.00-0.03); Immature Granulocytes Pct Auto 0.3 % (0.0-0.5); Lymphocytes Absolute Auto 1.9 10^3/uL (1.2-3.8); Lymphocytes Percent Auto 31.2 % (20.5-60.0); Mean Corpuscular HGB Conc 33.1 g/dL (29.9-35.2); Mean Corpuscular Hemoglobin 30.8 pg (25.9-34.0); Mean Platelet Volume 10.8 fL (9.5-13.5); Monocytes Absolute Auto 0.6 10^3/uL (0.3-0.8); Monocytes Percent Auto 10.1 % (1.7-12.0); Neutrophils Absolute Auto 3.5 10^3/uL (1.4-6.5); Platelet Count 186 10^3/uL (150-450); Red Blood Count 4.42 10^6/uL (4.70-6.10); Red Cell Distribution Width 12.9 % (11.0-15.0); White Blood Count 6.2 10^3/uL (4.0-11.0)
[2023-04-22 04:56] LABS: Anion Gap 9.6; BUN Creatinine Ratio 13.8; Calcium 9.1 mg/dL (8.5-10.1); Carbon Dioxide 29.8 mmol/L (21.0-32.0); Chloride 102 mmol/L (98-107); Estimated GFR (African America >60 (>=60); Estimated GFR (Non-African Ame >60 (>=60); Glucose 116 mg/dL (74-106); Potassium 3.4 mmol/L (3.5-5.1); Sodium 138 mmol/L (136-145)
[2023-04-22] MEDS: THIAMINE MONONITRATE (VIT B1) 100 MG TABLET PO (08:46)
[2023-04-22] MEDS: FOLIC ACID 1 MG TABLET PO (08:46)
[2023-04-22] MEDS: METOPROLOL TARTRATE 25 MG TABLET 50 MG PO ×2 (08:46→21:08)
[2023-04-22] MEDS: APIXABAN 5 MG TABLET PO ×2 (08:46→21:08)
[2023-04-22] MEDS: POTASSIUM CHLORIDE 10 MEQ ER TABLET 20 MEQ PO ×2 (08:46→21:08)
[2023-04-22] MEDS: MULTIVITAMIN TABLET 400 TAB PO (08:46)
[2023-04-22] MEDS: FUROSEMIDE 40 MG TABLET PO (08:54)
--- NOTE | 2023-04-22 10:00 | PM.PN ---
Progress Note: Subjective Subjective Interval history: Patient slightly improved. Off cardizem drip and pulse controlled with oral metoprolol. Remains in afib. No chest pain or pressure. No palpitations. Back pain improved and right foot able to move better but still weak. X-ray showed lumbar DDD. Normal appetite and no emesis or diarrhea. Preliminary echo shows EF 39%. Edema improved. Exam Constitutional Vital Signs - 24 hr 04/21/23 10:17 04/21/23 13:00 04/21/23 14:17 Temperature Pulse Rate 84 95 H 92 H Pulse Rate [Monitor] Respiratory Rate 18 Blood Pressure Blood Pressure [Left Arm] 103/75 Pulse Oximetry 96 Oxygen Delivery Method Room Air 04/21/23 10:02 04/21/23 10:10 04/21/23 10:20 Temperature Pulse Rate 88 91 H 72 Pulse Rate [Monitor] Respiratory Rate 23 21 21 Blood Pressure Blood Pressure [Left Arm] Pulse Oximetry Oxygen Delivery Method 04/21/23 10:30 04/21/23 11:05 04/21/23 11:10 Temperature Pulse Rate 98 H 119 H 86 Pulse Rate [Monitor] Respiratory Rate 16 22 20 Blood Pressure Blood Pressure [Left Arm] Pulse Oximetry Oxygen Delivery Method 04/21/23 11:20 04/21/23 11:30 04/21/23 11:40 Temperature Pulse Rate 94 H 73 90 Pulse Rate [Monitor] Respiratory Rate 21 22 22 Blood Pressure Blood Pressure [Left Arm] Pulse Oximetry Oxygen Delivery Method 04/21/23 11:50 04/21/23 12:00 04/21/23 12:10 Temperature Pulse Rate 83 79 82 Pulse Rate [Monitor] Respiratory Rate 20 21 25 H Blood Pressure Blood Pressure [Left Arm] Pulse Oximetry Oxygen Delivery Method 04/21/23 12:20 04/21/23 12:30 04/21/23 12:40 Temperature Pulse Rate 78 93 H 91 H Pulse Rate [Monitor] Respiratory Rate 18 20 24 Blood Pressure Blood Pressure [Left Arm] Pulse Oximetry Oxygen Delivery Method 04/21/23 12:50 04/21/23 12:52 04/21/23 12:53 Temperature Pulse Rate 106 H 107 H 100 H Pulse Rate [Monitor] Respiratory Rate 24 18 27 H Blood Pressure 103/75 Blood Pressure [Left Arm] Pulse Oximetry Oxygen Delivery Method 04/21/23 13:02 04/21/23 13:10 04/21/23 13:20 Temperature Pulse Rate 83 101 H 86 Pulse Rate [Monitor] Respiratory Rate 20 22 23 Blood Pressure Blood Pressure [Left Arm] Pulse Oximetry Oxygen Delivery Method 04/21/23 13:30 04/21/23 13:40 04/21/23 13:50 Temperature Pulse Rate 74 117 H 124 H Pulse Rate [Monitor] Respiratory Rate 19 17 22 Blood Pressure Blood Pressure [Left Arm] Pulse Oximetry Oxygen Delivery Method 04/21/23 14:00 04/21/23 14:10 04/21/23 14:28 Temperature Pulse Rate 120 H 80 95 H Pulse Rate [Monitor] Respiratory Rate 27 H 21 21 Blood Pressure Blood Pressure [Left Arm] Pulse Oximetry Oxygen Delivery Method 04/21/23 14:30 04/21/23 14:40 04/21/23 14:50 Temperature Pulse Rate 85 102 H 87 Pulse Rate [Monitor] Respiratory Rate 20 21 21 Blood Pressure Blood Pressure [Left Arm] Pulse Oximetry Oxygen Delivery Method 04/21/23 15:00 04/21/23 15:10 04/21/23 15:21 Temperature Pulse Rate 85 78 120 H Pulse Rate [Monitor] Respiratory Rate 24 22 19 Blood Pressure Blood Pressure [Left Arm] Pulse Oximetry Oxygen Delivery Method 04/21/23 15:30 04/21/23 15:40 04/21/23 15:50 Temperature Pulse Rate 86 105 H 85 Pulse Rate [Monitor] Respiratory Rate 22 21 12 Blood Pressure Blood Pressure [Left Arm] Pulse Oximetry Oxygen Delivery Method 04/21/23 15:57 04/21/23 15:58 04/21/23 18:39 Temperature Pulse Rate 103 H 116 H 118 H Pulse Rate [Monitor] Respiratory Rate 22 32 H Blood Pressure 110/73 Blood Pressure [Left Arm] Pulse Oximetry 99 Oxygen Delivery Method 04/21/23 19:52 04/21/23 19:52 04/21/23 15:58 Temperature Pulse Rate 90 Pulse Rate [Monitor] 90 Respiratory Rate Blood Pressure 110/73 Blood Pressure [Left Arm] Pulse Oximetry 97 Oxygen Delivery Method 04/21/23 18:14 04/21/23 18:20 04/21/23 18:30 Temperature Pulse Rate 128 H 168 H 107 H Pulse Rate [Monitor] Respiratory Rate 20 23 19 Blood Pressure Blood Pressure [Left Arm] Pulse Oximetry Oxygen Delivery Method 04/21/23 18:40 04/21/23 18:50 07/03/23 19:00 Temperature Pulse Rate 141 H 89 114 H Pulse Rate [Monitor] Respiratory Rate 11 L 30 H 20 Blood Pressure Blood Pressure [Left Arm] Pulse Oximetry Oxygen Delivery Method 04/21/23 19:10 04/21/23 19:20 04/21/23 19:30 Temperature Pulse Rate 160 H 109 H 81 Pulse Rate [Monitor] Respiratory Rate 22 22 22 Blood Pressure Blood Pressure [Left Arm] Pulse Oximetry Oxygen Delivery Method 04/21/23 19:40 04/21/23 19:41 04/21/23 19:41 Temperature 97.6 F Pulse Rate 126 H 95 H 128 H Pulse Rate [Monitor] Respiratory Rate 17 14 14 Blood Pressure 117/91 H Blood Pressure [Left Arm] Pulse Oximetry 98 Oxygen Delivery Method 04/21/23 19:50 04/21/23 20:29 04/21/23 22:13 Temperature Pulse Rate 87 99 H 118 H Pulse Rate [Monitor] Respiratory Rate 22 Blood Pressure Blood Pressure [Left Arm] Pulse Oximetry Oxygen Delivery Method 04/21/23 23:24 04/21/23 20:00 04/21/23 20:10 Temperature Pulse Rate 141 H 139 H 135 H Pulse Rate [Monitor] Respiratory Rate 17 9 L Blood Pressure Blood Pressure [Left Arm] Pulse Oximetry Oxygen Delivery Method 04/21/23 20:20 04/21/23 20:30 04/21/23 20:40 Temperature Pulse Rate 116 H 112 H 150 H Pulse Rate [Monitor] Respiratory Rate 20 13 4 L Blood Pressure Blood Pressure [Left Arm] Pulse Oximetry Oxygen Delivery Method 04/21/23 20:50 04/21/23 21:00 04/21/23 21:10 Temperature Pulse Rate 143 H 110 H 167 H Pulse Rate [Monitor] Respiratory Rate 18 24 20 Blood Pressure Blood Pressure [Left Arm] Pulse Oximetry Oxygen Delivery Method 04/21/23 21:20 04/21/23 21:30 04/21/23 21:40 Temperature Pulse Rate 131 H 118 H 135 H Pulse Rate [Monitor] Respiratory Rate 24 24 23 Blood Pressure Blood Pressure [Left Arm] Pulse Oximetry Oxygen Delivery Method 04/21/23 21:50 04/21/23 22:00 04/21/23 22:10 Temperature Pulse Rate 121 H 126 H 138 H Pulse Rate [Monitor] Respiratory Rate 23 8 L 21 Blood Pressure Blood Pressure [Left Arm] Pulse Oximetry Oxygen Delivery Method 04/21/23 22:20 04/21/23 22:30 04/21/23 22:40 Temperature Pulse Rate 120 H 91 H 117 H Pulse Rate [Monitor] Respiratory Rate 18 18 14 Blood Pressure Blood Pressure [Left Arm] Pulse Oximetry Oxygen Delivery Method 04/21/23 22:50 04/21/23 23:00 04/21/23 23:10 Temperature Pulse Rate 124 H 105 H 117 H Pulse Rate [Monitor] Respiratory Rate 19 17 20 Blood Pressure Blood Pressure [Left Arm] Pulse Oximetry Oxygen Delivery Method 04/21/23 23:18 04/21/23 23:18 04/21/23 23:20 Temperature 97.4 F L Pulse Rate 113 H 129 H 131 H Pulse Rate [Monitor] Respiratory Rate 14 40 H 19 Blood Pressure 107/81 H Blood Pressure [Left Arm] Pulse Oximetry 99 Oxygen Delivery Method 04/22/23 01:02 04/22/23 02:29 04/22/23 03:12 Temperature Pulse Rate 114 H 125 H Pulse Rate [Monitor] Respiratory Rate 14 Blood Pressure Blood Pressure [Left Arm] Pulse Oximetry Oxygen Delivery Method 04/22/23 03:12 04/22/23 04:00 04/21/23 23:30 Temperature Pulse Rate 97 H 98 H 94 H Pulse Rate [Monitor] Respiratory Rate 13 Blood Pressure Blood Pressure [Left Arm] Pulse Oximetry Oxygen Delivery Method 04/21/23 23:40 04/21/23 23:50 04/22/23 00:00 Temperature Pulse Rate 154 H 122 H 100 H Pulse Rate [Monitor] Respiratory Rate 16 21 17 Blood Pressure Blood Pressure [Left Arm] Pulse Oximetry Oxygen Delivery Method 04/22/23 00:10 04/22/23 00:20 04/22/23 00:30 Temperature Pulse Rate 82 121 H 107 H Pulse Rate [Monitor] Respiratory Rate 18 19 17 Blood Pressure Blood Pressure [Left Arm] Pulse Oximetry Oxygen Delivery Method 04/22/23 00:40 04/22/23 00:50 04/22/23 01:00 Temperature Pulse Rate 98 H 139 H 99 H Pulse Rate [Monitor] Respiratory Rate 19 18 11 L Blood Pressure Blood Pressure [Left Arm] Pulse Oximetry Oxygen Delivery Method 04/22/23 01:10 04/22/23 01:20 04/22/23 01:30 Temperature Pulse Rate 95 H 112 H 111 H Pulse Rate [Monitor] Respiratory Rate 11 L 19 10 L Blood Pressure Blood Pressure [Left Arm] Pulse Oximetry Oxygen Delivery Method 04/22/23 01:40 04/22/23 01:50 04/22/23 02:00 Temperature Pulse Rate 104 H 104 H 106 H Pulse Rate [Monitor] Respiratory Rate 17 Blood Pressure Blood Pressure [Left Arm] Pulse Oximetry Oxygen Delivery Method 04/22/23 02:10 04/22/23 02:20 04/22/23 02:30 Temperature Pulse Rate 85 82 114 H Pulse Rate [Monitor] Respiratory Rate Blood Pressure Blood Pressure [Left Arm] Pulse Oximetry Oxygen Delivery Method 04/22/23 02:40 04/22/23 02:50 04/22/23 03:00 Temperature Pulse Rate 138 H 169 H 109 H Pulse Rate [Monitor] Respiratory Rate Blood Pressure Blood Pressure [Left Arm] Pulse Oximetry Oxygen Delivery Method 04/22/23 03:10 04/22/23 03:20 04/22/23 03:30 Temperature Pulse Rate 114 H 106 H 105 H Pulse Rate [Monitor] Respiratory Rate Blood Pressure Blood Pressure [Left Arm] Pulse Oximetry Oxygen Delivery Method 04/22/23 03:40 04/22/23 03:50 04/22/23 04:00 Temperature Pulse Rate 93 H 130 H 111 H Pulse Rate [Monitor] Respiratory Rate Blood Pressure Blood Pressure [Left Arm] Pulse Oximetry Oxygen Delivery Method 04/22/23 04:10 04/22/23 04:20 04/22/23 04:30 Temperature Pulse Rate 74 146 H 106 H Pulse Rate [Monitor] Respiratory Rate Blood Pressure Blood Pressure [Left Arm] Pulse Oximetry Oxygen Delivery Method 04/22/23 04:40 04/22/23 04:50 04/22/23 05:00 Temperature Pulse Rate 106 H 149 H 107 H Pulse Rate [Monitor] Respiratory Rate Blood Pressure Blood Pressure [Left Arm] Pulse Oximetry Oxygen Delivery Method 04/22/23 05:10 04/22/23 05:20 04/22/23 05:30 Temperature Pulse Rate 104 H 140 H 84 Pulse Rate [Monitor] Respiratory Rate Blood Pressure Blood Pressure [Left Arm] Pulse Oximetry Oxygen Delivery Method 04/22/23 05:40 04/22/23 07:00 04/22/23 08:00 Temperature Pulse Rate 81 100 H Pulse Rate [Monitor] 124 H Respiratory Rate 12 16 Blood Pressure Blood Pressure [Left Arm] Pulse Oximetry 98 Oxygen Delivery Method Documenting provider has reviewed patient's vital signs: yes Common normals: no apparent distress, oriented x3 and alert HENMT Common normals: normocephalic Eye Common normals: PERRL and EOMs intact bilaterally Respiratory Common normals: clear to auscultation bilaterally Cardio Common normals: no gallops, no murmurs and no rub Rhythm: abnormal rhythm irregularly irregular GI Common normals: Normal to inspection, nondistended, normoactive bowel sounds present and non-tender Extremity General: no edema Right lower extremity: foot and digits (Decreased movement right foot and toes) Progress Note: Objective Labs Labs: Short CBC 04/22/23 Range/Units 03:45 WBC 6.2 (4.0-11.0) 10^3/uL Hgb 13.6 L (14.0-18.0) g/dL Hct 41.1 L (42.0-54.0) % Plt Count 186 (150-450) 10^3/uL BMP 04/22/23 03:45 Sodium 138 Potassium 3.4 L Chloride 102 Carbon Dioxide 29.8 BUN 15.0 Creatinine 1.09 Glucose 116 H Calcium 9.1 Progress Note: A&P Assessment and Plan (1) Rapid atrial fibrillation: (2) Edema, peripheral: (3) Hypokalemia: Plan 1. Afib with RVR 2. Acute on chronic HFrEF 3. Lumbar DDD 4. Alchohol abuse 5. Hypokalemia Remains in afib but pulse controlled with oral metoprolol and continue. Echo shows low EF and add lisinopril. Continue metoprolol and lasix. Will need cardiology evaluation and stress test as outpatient. Continue Eliquis. Continued weakness in right foot and x-ray with DDD. B12 and folate normal. Start solu-medrol and continue PT. Continue CIWA scale. Likely ready for discharge in next 1-2 days.
[2023-04-22] MEDS: METHYLPREDNISOLONE SOD SUCC PF 125 MG/2 ML VIAL 60 MG IVP ×3 (11:34→21:08)
[2023-04-22] MEDS: METOPROLOL TARTRATE 5 MG/5 ML VIAL IV (11:34)
[2023-04-22] MEDS: DIGOXIN 500 MCG/2 ML AMPUL 250 MCG IV (12:17)
[2023-04-22] MEDS: DILTIAZEM HCL 25 MG/5 ML VIAL 20 MG IV (14:24)
[2023-04-22] MEDS: dilTIAZem HCL 125 MG in 0.9 % SODIUM CHLORIDE 100 ML 10 MG IV (18:37)
[2023-04-23] VITALS (112 sets, daily range): BP systolic 108–134; BP diastolic 73–90; PULSE 64–169; RESP 18; TEMP 36.6–36.7; O2SAT 79–97
[2023-04-23] MEDS: METHYLPREDNISOLONE SOD SUCC PF 125 MG/2 ML VIAL 60 MG IVP ×4 (04:04→21:18)
[2023-04-23 04:28] LABS: Hematocrit 42.4 % (42.0-54.0); Hemoglobin 14.6 g/dL (14.0-18.0); Mean Corpuscular HGB Conc 34.4 g/dL (29.9-35.2); Mean Corpuscular Hemoglobin 31.4 pg (25.9-34.0); Mean Corpuscular Volume 91.2 fL (80.0-94.0); Mean Platelet Volume 10.8 fL (9.5-13.5); Platelet Count 183 10^3/uL (150-450); Red Blood Count 4.65 10^6/uL (4.70-6.10); Red Cell Distribution Width 12.6 % (11.0-15.0); White Blood Count 5.1 10^3/uL (4.0-11.0)
[2023-04-23 04:39] LABS: Anion Gap 9.5; BUN Creatinine Ratio 19.5; Carbon Dioxide 27.3 mmol/L (21.0-32.0); Chloride 104 mmol/L (98-107); Estimated GFR (African America >60 (>=60); Estimated GFR (Non-African Ame >60 (>=60); Glucose 227 mg/dL (74-106); Potassium 3.8 mmol/L (3.5-5.1); Sodium 137 mmol/L (136-145)
[2023-04-23 04:53] LABS: Lymphocytes Absolute Manual 0.25 10^3/uL (1.20-3.80); Segmented Neut Absolute Manual 4.64 10^3/uL (1.4-6.5)
[2023-04-23 04:54] LABS: Burr Cells 1+
[2023-04-23] MEDS: DILTIAZEM HCL 240 MG CAP.ER.24H PO (09:26)
[2023-04-23] MEDS: LISINOPRIL 5 MG TABLET PO (09:26)
[2023-04-23] MEDS: MULTIVITAMIN TABLET 400 TAB PO (09:26)
[2023-04-23] MEDS: THIAMINE MONONITRATE (VIT B1) 100 MG TABLET PO (09:26)
[2023-04-23] MEDS: FUROSEMIDE 40 MG TABLET PO (09:26)
[2023-04-23] MEDS: METOPROLOL TARTRATE 25 MG TABLET 50 MG PO ×2 (09:26→21:17)
[2023-04-23] MEDS: FOLIC ACID 1 MG TABLET PO (09:26)
[2023-04-23] MEDS: APIXABAN 5 MG TABLET PO ×2 (09:26→21:17)
[2023-04-23] MEDS: POTASSIUM CHLORIDE 10 MEQ ER TABLET 20 MEQ PO ×2 (09:26→21:17)
--- NOTE | 2023-04-23 10:48 | PM.PN ---
Progress Note: Subjective Subjective Interval history: Patient developed rapid afib and back on cardizem drip. Rate improved this am. Still develops tachycardia with activity. No chest pain or heaviness. No SOB or cough. Continues to have weakness in right foot and mild back pain. Normal appetite and no emesis or diarrhea. Exam Constitutional Vital Signs - 24 hr 04/22/23 11:00 04/22/23 15:00 04/22/23 18:00 Temperature Pulse Rate Pulse Rate [Monitor] 123 H 105 H Respiratory Rate 16 18 Blood Pressure 101/70 Blood Pressure [Left Arm] Pulse Oximetry Oxygen Delivery Method 04/22/23 11:09 04/22/23 12:14 04/22/23 12:17 Temperature Pulse Rate 123 H 145 H Pulse Rate [Monitor] Respiratory Rate 16 Blood Pressure Blood Pressure [Left Arm] 104/79 Pulse Oximetry 97 97 Oxygen Delivery Method Room Air 04/22/23 12:36 04/22/23 14:24 04/22/23 15:59 Temperature Pulse Rate 130 H 131 H Pulse Rate [Monitor] Respiratory Rate Blood Pressure 107/89 H Blood Pressure [Left Arm] Pulse Oximetry Oxygen Delivery Method 04/22/23 18:18 04/22/23 18:37 04/22/23 19:00 Temperature Pulse Rate 115 H Pulse Rate [Monitor] 86 Respiratory Rate 18 Blood Pressure 101/70 Blood Pressure [Left Arm] Pulse Oximetry Oxygen Delivery Method 04/22/23 19:08 04/22/23 13:10 04/22/23 13:20 Temperature 97.9 F Pulse Rate 95 H 143 H 148 H Pulse Rate [Monitor] Respiratory Rate 18 Blood Pressure Blood Pressure [Left Arm] 108/73 Pulse Oximetry 96 Oxygen Delivery Method Room Air 04/22/23 13:30 04/22/23 13:40 04/22/23 13:50 Temperature Pulse Rate 140 H 117 H 170 H Pulse Rate [Monitor] Respiratory Rate Blood Pressure Blood Pressure [Left Arm] Pulse Oximetry Oxygen Delivery Method 04/22/23 14:00 04/22/23 14:10 04/22/23 14:20 Temperature Pulse Rate 131 H 84 110 H Pulse Rate [Monitor] Respiratory Rate Blood Pressure Blood Pressure [Left Arm] Pulse Oximetry Oxygen Delivery Method 04/22/23 14:30 04/22/23 14:40 04/22/23 14:50 Temperature Pulse Rate 102 H 100 H 124 H Pulse Rate [Monitor] Respiratory Rate Blood Pressure Blood Pressure [Left Arm] Pulse Oximetry Oxygen Delivery Method 04/22/23 15:00 04/22/23 15:10 04/22/23 15:20 Temperature Pulse Rate 118 H 74 141 H Pulse Rate [Monitor] Respiratory Rate Blood Pressure Blood Pressure [Left Arm] Pulse Oximetry Oxygen Delivery Method 04/22/23 15:30 04/22/23 15:40 04/22/23 15:50 Temperature Pulse Rate 128 H 121 H 123 H Pulse Rate [Monitor] Respiratory Rate Blood Pressure Blood Pressure [Left Arm] Pulse Oximetry Oxygen Delivery Method 04/22/23 16:00 04/22/23 16:10 04/22/23 16:20 Temperature Pulse Rate 88 154 H 120 H Pulse Rate [Monitor] Respiratory Rate Blood Pressure Blood Pressure [Left Arm] Pulse Oximetry Oxygen Delivery Method 04/22/23 16:30 04/22/23 16:40 04/22/23 16:50 Temperature Pulse Rate 122 H 130 H 106 H Pulse Rate [Monitor] Respiratory Rate Blood Pressure Blood Pressure [Left Arm] Pulse Oximetry Oxygen Delivery Method 04/22/23 17:00 04/22/23 17:10 04/22/23 17:20 Temperature Pulse Rate 130 H 106 H 137 H Pulse Rate [Monitor] Respiratory Rate Blood Pressure Blood Pressure [Left Arm] Pulse Oximetry Oxygen Delivery Method 04/22/23 17:30 04/22/23 17:40 04/22/23 17:50 Temperature Pulse Rate 142 H 146 H 156 H Pulse Rate [Monitor] Respiratory Rate Blood Pressure Blood Pressure [Left Arm] Pulse Oximetry Oxygen Delivery Method 04/22/23 18:00 04/22/23 18:10 04/22/23 18:13 Temperature Pulse Rate 155 H 147 H Pulse Rate [Monitor] Respiratory Rate Blood Pressure 137/96 H Blood Pressure [Left Arm] Pulse Oximetry Oxygen Delivery Method 04/22/23 18:13 04/22/23 18:20 04/22/23 18:21 Temperature Pulse Rate 122 H 122 H Pulse Rate [Monitor] Respiratory Rate Blood Pressure 123/84 H Blood Pressure [Left Arm] Pulse Oximetry Oxygen Delivery Method 04/22/23 18:21 04/22/23 18:21 04/22/23 18:25 Temperature Pulse Rate 95 H Pulse Rate [Monitor] Respiratory Rate Blood Pressure 123/84 H 103/78 Blood Pressure [Left Arm] Pulse Oximetry Oxygen Delivery Method 04/22/23 18:25 04/22/23 18:25 04/22/23 18:30 Temperature Pulse Rate 137 H Pulse Rate [Monitor] Respiratory Rate Blood Pressure 103/78 101/70 Blood Pressure [Left Arm] Pulse Oximetry Oxygen Delivery Method 04/22/23 18:30 04/22/23 18:36 04/22/23 18:36 Temperature Pulse Rate 132 H 123 H Pulse Rate [Monitor] Respiratory Rate Blood Pressure 118/72 Blood Pressure [Left Arm] Pulse Oximetry Oxygen Delivery Method 04/22/23 18:36 04/22/23 18:40 04/22/23 18:50 Temperature Pulse Rate 121 H 82 Pulse Rate [Monitor] Respiratory Rate Blood Pressure 118/72 Blood Pressure [Left Arm] Pulse Oximetry Oxygen Delivery Method 04/22/23 19:00 04/22/23 19:01 04/22/23 19:01 Temperature Pulse Rate 97 H 90 Pulse Rate [Monitor] Respiratory Rate Blood Pressure 108/73 Blood Pressure [Left Arm] Pulse Oximetry Oxygen Delivery Method 04/22/23 22:00 04/22/23 23:00 04/23/23 02:00 Temperature Pulse Rate 94 H 72 Pulse Rate [Monitor] 86 Respiratory Rate 18 Blood Pressure Blood Pressure [Left Arm] Pulse Oximetry Oxygen Delivery Method 04/23/23 03:00 04/23/23 06:00 04/23/23 08:03 Temperature Pulse Rate 74 105 H Pulse Rate [Monitor] 71 Respiratory Rate 18 Blood Pressure Blood Pressure [Left Arm] Pulse Oximetry Oxygen Delivery Method 04/23/23 08:31 04/23/23 08:31 04/23/23 02:30 Temperature Pulse Rate 79 Pulse Rate [Monitor] 79 Respiratory Rate Blood Pressure 112/89 H Blood Pressure [Left Arm] Pulse Oximetry Oxygen Delivery Method 04/23/23 02:30 04/23/23 02:40 04/23/23 02:50 Temperature Pulse Rate 69 86 92 H Pulse Rate [Monitor] Respiratory Rate Blood Pressure Blood Pressure [Left Arm] Pulse Oximetry Oxygen Delivery Method 04/23/23 03:00 04/23/23 03:00 04/23/23 03:10 Temperature Pulse Rate 97 H 76 Pulse Rate [Monitor] Respiratory Rate Blood Pressure 113/84 H Blood Pressure [Left Arm] Pulse Oximetry Oxygen Delivery Method 04/23/23 03:20 04/23/23 03:30 04/23/23 03:30 Temperature Pulse Rate 75 73 Pulse Rate [Monitor] Respiratory Rate Blood Pressure 134/86 H Blood Pressure [Left Arm] Pulse Oximetry Oxygen Delivery Method 04/23/23 03:40 04/23/23 03:50 04/23/23 04:00 Temperature Pulse Rate 78 88 96 H Pulse Rate [Monitor] Respiratory Rate Blood Pressure Blood Pressure [Left Arm] Pulse Oximetry Oxygen Delivery Method 04/23/23 04:10 04/23/23 04:20 04/23/23 04:30 Temperature Pulse Rate 74 81 65 Pulse Rate [Monitor] Respiratory Rate Blood Pressure Blood Pressure [Left Arm] Pulse Oximetry Oxygen Delivery Method 04/23/23 04:31 04/23/23 04:31 04/23/23 04:31 Temperature Pulse Rate 81 Pulse Rate [Monitor] Respiratory Rate Blood Pressure 113/74 113/74 Blood Pressure [Left Arm] Pulse Oximetry Oxygen Delivery Method 04/23/23 04:40 04/23/23 04:50 04/23/23 05:00 Temperature Pulse Rate 81 76 Pulse Rate [Monitor] Respiratory Rate Blood Pressure 113/86 H Blood Pressure [Left Arm] Pulse Oximetry Oxygen Delivery Method 04/23/23 05:00 04/23/23 05:10 04/23/23 05:20 Temperature Pulse Rate 76 75 78 Pulse Rate [Monitor] Respiratory Rate Blood Pressure Blood Pressure [Left Arm] Pulse Oximetry Oxygen Delivery Method 04/23/23 05:30 04/23/23 05:30 04/23/23 05:40 Temperature Pulse Rate 78 84 Pulse Rate [Monitor] Respiratory Rate Blood Pressure 120/90 H Blood Pressure [Left Arm] Pulse Oximetry Oxygen Delivery Method 04/23/23 05:50 04/23/23 06:00 04/23/23 06:00 Temperature Pulse Rate 75 66 Pulse Rate [Monitor] Respiratory Rate Blood Pressure 125/86 H Blood Pressure [Left Arm] Pulse Oximetry Oxygen Delivery Method 04/23/23 06:10 04/23/23 06:20 04/23/23 06:30 Temperature Pulse Rate 83 74 Pulse Rate [Monitor] Respiratory Rate Blood Pressure 118/87 H Blood Pressure [Left Arm] Pulse Oximetry Oxygen Delivery Method 04/23/23 06:30 04/23/23 06:40 04/23/23 06:50 Temperature Pulse Rate 101 H 78 72 Pulse Rate [Monitor] Respiratory Rate Blood Pressure Blood Pressure [Left Arm] Pulse Oximetry Oxygen Delivery Method 04/23/23 07:00 04/23/23 07:00 04/23/23 07:10 Temperature Pulse Rate 87 67 Pulse Rate [Monitor] Respiratory Rate Blood Pressure 114/78 Blood Pressure [Left Arm] Pulse Oximetry Oxygen Delivery Method 04/23/23 07:20 04/23/23 07:30 04/23/23 07:30 Temperature Pulse Rate 72 70 Pulse Rate [Monitor] Respiratory Rate Blood Pressure 117/81 H Blood Pressure [Left Arm] Pulse Oximetry Oxygen Delivery Method 04/23/23 07:40 04/23/23 07:50 04/23/23 08:00 Temperature 98.1 F Pulse Rate 64 73 79 Pulse Rate [Monitor] Respiratory Rate 18 Blood Pressure 123/89 H Blood Pressure [Left Arm] Pulse Oximetry 97 Oxygen Delivery Method 04/23/23 08:00 04/23/23 08:10 04/23/23 08:20 Temperature Pulse Rate 81 71 73 Pulse Rate [Monitor] Respiratory Rate Blood Pressure Blood Pressure [Left Arm] Pulse Oximetry Oxygen Delivery Method 04/23/23 08:30 Temperature Pulse Rate 103 H Pulse Rate [Monitor] Respiratory Rate Blood Pressure Blood Pressure [Left Arm] Pulse Oximetry Oxygen Delivery Method Documenting provider has reviewed patient's vital signs: yes Common normals: no apparent distress, oriented x3 and alert HENMT Common normals: normocephalic Eye Common normals: PERRL and EOMs intact bilaterally Respiratory Common normals: clear to auscultation bilaterally Cardio Common normals: no gallops, no murmurs and no rub Rhythm: abnormal rhythm irregularly irregular GI Common normals: Normal to inspection, nondistended, normoactive bowel sounds present and non-tender Extremity General: no edema Progress Note: Objective Labs Labs: Short CBC 04/23/23 Range/Units 03:57 WBC 5.1 (4.0-11.0) 10^3/uL Hgb 14.6 (14.0-18.0) g/dL Hct 42.4 (42.0-54.0) % Plt Count 183 (150-450) 10^3/uL BMP 04/23/23 03:57 Sodium 137 Potassium 3.8 Chloride 104 Carbon Dioxide 27.3 BUN 17.0 Creatinine 0.87 Glucose 227 H Calcium 9.0 Progress Note: A&P Assessment and Plan (1) Rapid atrial fibrillation: (2) Edema, peripheral: (3) Hypokalemia: Plan 1. Afib with RVR? 2. Acute on chronic HFrEF? 3. Lumbar DDD? 4. Alchohol abuse? 5. Hypokalemia Remains in afib and on cardizem drip. Add oral cardizem and continue metoprolol. Wean off drip. Echo pending but preliminary EF 39%. Consult cardiology. Continue PT and steroids for back and right foot weakness. Continue Eliquis for anticoagulation. Will need further work up by cardiology including stress test or heart cath.
--- NOTE | 2023-04-23 11:03 | REH.PTDLY ---
Physical Therapy Daily Note PT Daily Note/Assess Start: 04/23/23 11:01 Freq: Status: Active Protocol: Document 04/23/23 11:02 KASH (Rec: 04/23/23 11:03 KASH [id number]) Visit Not Completed Visit Not Completed Due to: Pt refusing Other Reason Visit Not Completed Pt up moving around on own in room, in bathroom upon arrival brushing teeth. Pt declines gait or exs when offered. Pt complaining of lack of ROM in R foot, offered exs to improve but pt still declines. Physical Therapy Daily Note/Assessment Time In 10:45 Time Out 10:55
--- NOTE | 2023-04-23 11:39 | CM.NOTE ---
Rounds made with Dr. Chen, wean cardizem drip today and start on P.O medication for rate control. Consult cardiology today.
--- NOTE | 2023-04-23 13:24 | PM.CACN ---
History of Present Illness History of Present Illness Consult date: 04/23/23 Requesting physician: Shahab Chen Consult reason: atrial fibrillation and congestive heart failure Chief complaint: lower extremity pain, NEW ONSET A-FIB WITH RVR Narrative: 57-year-old male with past medical history of alcoholism, smoker of a pack per day since he was 20 at least, hypertension. Patient presented to the ER with 1 to 2-week history of palpitations on and off he states. He then began to experience worsening palpitations, racing heart, lightheadedness, dizziness and lower extremity edema with mild shortness of breath and went to the ER. He was found to be in A-fib RVR with elevated BNP. He was diuresed with Lasix and started on Cardizem and anticoagulation. He has had difficulty with rate control and has not converted on his own. He is currently withdrawing from alcohol and drinks about minimum 10 beers a day, he is having mild withdrawal symptoms and alert to self place and time. He has visible tremors. Preliminary echo showed EF 35%. Patient's never had ischemic evaluation. I discussed with patient and be been his best interest to have a GANGA and cardioversion to try to convert him out of this rhythm as he came in with heart failure symptoms which were exacerbated by A-fib Review of Systems ROS Cardiovascular Reports: chest pain, palpitations, edema, swelling of feet/ankles, lightheadedness and shortness of breath with exertion Respiratory Reports: shortness of breath [facility] Medical History (Updated 04/22/23 @ 10:00 by Shahab Chen MD) Surgical History (Updated 04/19/23 @ 18:18 by Palmira Stevens RN) Family History (Updated 04/19/23 @ 18:19 by Palmira Stevens RN) Mother Family history of cancer Social History (Updated 04/19/23 @ 18:22 by Palmira Stevens RN) Within the past year, how often did you have a drink containing alcohol: 4 or more times a week Within the past year, how many standard drinks containing alcohol did you have on a typical day: 10 or more Within the past year, how often did you have six or more drinks on one occasion: daily or almost daily Total score: 12 Score interpretation: A score of 4 or more indicates drinking is likely to affect patient's safety. Smoking status: Current every day smoker Non-prescribed substance use: denies use Highest level of school completed/degree received: 12th grade, no diploma Are you now , , , , never or living with a partner: In a typical week, how many times do you talk on the telephone with family, friends, or neighbors: 3 or more times per week How often do you get together with friends or relatives: twice per week How often do you attend oriental orthodox or methodist services: never Do you belong to any clubs or organizations such as oriental orthodox groups unions, [employer] or athletic groups, or school groups: no Total score: 1 Score interpretation: A score of less than or equal to 1 indicates the most socially isolated. Little interest or pleasure in doing things: not at all Feeling down, depressed, or hopeless: not at all Feel stressed/tense/nervous/anxious/difficulty sleeping: not at all Do you think of yourself as: straight/heterosexual Gender Identity: male Meds Home Medications and Allergies Home Medications Medication Instructions Recorded Confirmed Type No Known Home Medications 04/19/23 04/19/23 History Allergies Allergy/AdvReac Type Severity Reaction Status Date / Time No Known Drug Allergies Allergy Verified 04/19/23 14:57 Exam Constitutional Vital Signs - 24 hr 04/22/23 15:00 04/22/23 18:00 04/22/23 14:24 Temperature Pulse Rate Pulse Rate [Monitor] 105 H Respiratory Rate 18 Blood Pressure 101/70 107/89 H Blood Pressure [Left Arm] Pulse Oximetry Oxygen Delivery Method 04/22/23 15:59 04/22/23 18:18 04/22/23 18:37 Temperature Pulse Rate 131 H 115 H Pulse Rate [Monitor] Respiratory Rate Blood Pressure 101/70 Blood Pressure [Left Arm] Pulse Oximetry Oxygen Delivery Method 04/22/23 19:00 04/22/23 19:08 04/22/23 13:30 Temperature 97.9 F Pulse Rate 95 H 140 H Pulse Rate [Monitor] 86 Respiratory Rate 18 18 Blood Pressure Blood Pressure [Left Arm] 108/73 Pulse Oximetry 96 Oxygen Delivery Method Room Air 04/22/23 13:40 04/22/23 13:50 04/22/23 14:00 Temperature Pulse Rate 117 H 170 H 131 H Pulse Rate [Monitor] Respiratory Rate Blood Pressure Blood Pressure [Left Arm] Pulse Oximetry Oxygen Delivery Method 04/22/23 14:10 04/22/23 14:20 04/22/23 14:30 Temperature Pulse Rate 84 110 H 102 H Pulse Rate [Monitor] Respiratory Rate Blood Pressure Blood Pressure [Left Arm] Pulse Oximetry Oxygen Delivery Method 04/22/23 14:40 04/22/23 14:50 04/22/23 15:00 Temperature Pulse Rate 100 H 124 H 118 H Pulse Rate [Monitor] Respiratory Rate Blood Pressure Blood Pressure [Left Arm] Pulse Oximetry Oxygen Delivery Method 04/22/23 15:10 04/22/23 15:20 04/22/23 15:30 Temperature Pulse Rate 74 141 H 128 H Pulse Rate [Monitor] Respiratory Rate Blood Pressure Blood Pressure [Left Arm] Pulse Oximetry Oxygen Delivery Method 04/22/23 15:40 04/22/23 15:50 04/22/23 16:00 Temperature Pulse Rate 121 H 123 H 88 Pulse Rate [Monitor] Respiratory Rate Blood Pressure Blood Pressure [Left Arm] Pulse Oximetry Oxygen Delivery Method 04/22/23 16:10 04/22/23 16:20 04/22/23 16:30 Temperature Pulse Rate 154 H 120 H 122 H Pulse Rate [Monitor] Respiratory Rate Blood Pressure Blood Pressure [Left Arm] Pulse Oximetry Oxygen Delivery Method 04/22/23 16:40 04/22/23 16:50 04/22/23 17:00 Temperature Pulse Rate 130 H 106 H 130 H Pulse Rate [Monitor] Respiratory Rate Blood Pressure Blood Pressure [Left Arm] Pulse Oximetry Oxygen Delivery Method 04/22/23 17:10 04/22/23 17:20 04/22/23 17:30 Temperature Pulse Rate 106 H 137 H 142 H Pulse Rate [Monitor] Respiratory Rate Blood Pressure Blood Pressure [Left Arm] Pulse Oximetry Oxygen Delivery Method 04/22/23 17:40 04/22/23 17:50 04/22/23 18:00 Temperature Pulse Rate 146 H 156 H 155 H Pulse Rate [Monitor] Respiratory Rate Blood Pressure Blood Pressure [Left Arm] Pulse Oximetry Oxygen Delivery Method 04/22/23 18:10 04/22/23 18:13 04/22/23 18:13 Temperature Pulse Rate 147 H 122 H Pulse Rate [Monitor] Respiratory Rate Blood Pressure 137/96 H Blood Pressure [Left Arm] Pulse Oximetry Oxygen Delivery Method 04/22/23 18:20 04/22/23 18:21 04/22/23 18:21 Temperature Pulse Rate 122 H 95 H Pulse Rate [Monitor] Respiratory Rate Blood Pressure 123/84 H Blood Pressure [Left Arm] Pulse Oximetry Oxygen Delivery Method 04/22/23 18:21 04/22/23 18:25 04/22/23 18:25 Temperature Pulse Rate 137 H Pulse Rate [Monitor] Respiratory Rate Blood Pressure 123/84 H 103/78 Blood Pressure [Left Arm] Pulse Oximetry Oxygen Delivery Method 04/22/23 18:25 04/22/23 18:30 04/22/23 18:30 Temperature Pulse Rate 132 H Pulse Rate [Monitor] Respiratory Rate Blood Pressure 103/78 101/70 Blood Pressure [Left Arm] Pulse Oximetry Oxygen Delivery Method 04/22/23 18:36 04/22/23 18:36 04/22/23 18:36 Temperature Pulse Rate 123 H Pulse Rate [Monitor] Respiratory Rate Blood Pressure 118/72 118/72 Blood Pressure [Left Arm] Pulse Oximetry Oxygen Delivery Method 04/22/23 18:40 04/22/23 18:50 04/22/23 19:00 Temperature Pulse Rate 121 H 82 97 H Pulse Rate [Monitor] Respiratory Rate Blood Pressure Blood Pressure [Left Arm] Pulse Oximetry Oxygen Delivery Method 04/22/23 19:01 04/22/23 19:01 04/22/23 22:00 Temperature Pulse Rate 90 94 H Pulse Rate [Monitor] Respiratory Rate Blood Pressure 108/73 Blood Pressure [Left Arm] Pulse Oximetry Oxygen Delivery Method 04/22/23 23:00 04/23/23 02:00 04/23/23 03:00 Temperature Pulse Rate 72 Pulse Rate [Monitor] 86 71 Respiratory Rate 18 18 Blood Pressure Blood Pressure [Left Arm] Pulse Oximetry Oxygen Delivery Method 04/23/23 06:00 04/23/23 08:03 04/23/23 08:31 Temperature Pulse Rate 74 105 H 79 Pulse Rate [Monitor] Respiratory Rate Blood Pressure Blood Pressure [Left Arm] Pulse Oximetry Oxygen Delivery Method 04/23/23 08:31 04/23/23 02:30 04/23/23 02:30 Temperature Pulse Rate 69 Pulse Rate [Monitor] 79 Respiratory Rate Blood Pressure 112/89 H Blood Pressure [Left Arm] Pulse Oximetry Oxygen Delivery Method 04/23/23 02:40 04/23/23 02:50 04/23/23 03:00 Temperature Pulse Rate 86 92 H Pulse Rate [Monitor] Respiratory Rate Blood Pressure 113/84 H Blood Pressure [Left Arm] Pulse Oximetry Oxygen Delivery Method 04/23/23 03:00 04/23/23 03:10 04/23/23 03:20 Temperature Pulse Rate 97 H 76 75 Pulse Rate [Monitor] Respiratory Rate Blood Pressure Blood Pressure [Left Arm] Pulse Oximetry Oxygen Delivery Method 04/23/23 03:30 04/23/23 03:30 04/23/23 03:40 Temperature Pulse Rate 73 78 Pulse Rate [Monitor] Respiratory Rate Blood Pressure 134/86 H Blood Pressure [Left Arm] Pulse Oximetry Oxygen Delivery Method 04/23/23 03:50 04/23/23 04:00 04/23/23 04:10 Temperature Pulse Rate 88 96 H 74 Pulse Rate [Monitor] Respiratory Rate Blood Pressure Blood Pressure [Left Arm] Pulse Oximetry Oxygen Delivery Method 04/23/23 04:20 04/23/23 04:30 04/23/23 04:31 Temperature Pulse Rate 81 65 Pulse Rate [Monitor] Respiratory Rate Blood Pressure 113/74 Blood Pressure [Left Arm] Pulse Oximetry Oxygen Delivery Method 04/23/23 04:31 04/23/23 04:31 04/23/23 04:40 Temperature Pulse Rate 81 81 Pulse Rate [Monitor] Respiratory Rate Blood Pressure 113/74 Blood Pressure [Left Arm] Pulse Oximetry Oxygen Delivery Method 04/23/23 04:50 04/23/23 05:00 04/23/23 05:00 Temperature Pulse Rate 76 76 Pulse Rate [Monitor] Respiratory Rate Blood Pressure 113/86 H Blood Pressure [Left Arm] Pulse Oximetry Oxygen Delivery Method 04/23/23 05:10 04/23/23 05:20 04/23/23 05:30 Temperature Pulse Rate 75 78 Pulse Rate [Monitor] Respiratory Rate Blood Pressure 120/90 H Blood Pressure [Left Arm] Pulse Oximetry Oxygen Delivery Method 04/23/23 05:30 04/23/23 05:40 04/23/23 05:50 Temperature Pulse Rate 78 84 75 Pulse Rate [Monitor] Respiratory Rate Blood Pressure Blood Pressure [Left Arm] Pulse Oximetry Oxygen Delivery Method 04/23/23 06:00 04/23/23 06:00 04/23/23 06:10 Temperature Pulse Rate 66 83 Pulse Rate [Monitor] Respiratory Rate Blood Pressure 125/86 H Blood Pressure [Left Arm] Pulse Oximetry Oxygen Delivery Method 04/23/23 06:20 04/23/23 06:30 04/23/23 06:30 Temperature Pulse Rate 74 101 H Pulse Rate [Monitor] Respiratory Rate Blood Pressure 118/87 H Blood Pressure [Left Arm] Pulse Oximetry Oxygen Delivery Method 04/23/23 06:40 04/23/23 06:50 04/23/23 07:00 Temperature Pulse Rate 78 72 Pulse Rate [Monitor] Respiratory Rate Blood Pressure 114/78 Blood Pressure [Left Arm] Pulse Oximetry Oxygen Delivery Method 04/23/23 07:00 04/23/23 07:10 04/23/23 07:20 Temperature Pulse Rate 87 67 72 Pulse Rate [Monitor] Respiratory Rate Blood Pressure Blood Pressure [Left Arm] Pulse Oximetry Oxygen Delivery Method 04/23/23 07:30 04/23/23 07:30 04/23/23 07:40 Temperature Pulse Rate 70 64 Pulse Rate [Monitor] Respiratory Rate Blood Pressure 117/81 H Blood Pressure [Left Arm] Pulse Oximetry Oxygen Delivery Method 04/23/23 07:50 04/23/23 08:00 04/23/23 08:00 Temperature 98.1 F Pulse Rate 73 79 81 Pulse Rate [Monitor] Respiratory Rate 18 Blood Pressure 123/89 H Blood Pressure [Left Arm] Pulse Oximetry 97 Oxygen Delivery Method 04/23/23 08:10 04/23/23 08:20 04/23/23 08:30 Temperature Pulse Rate 71 73 103 H Pulse Rate [Monitor] Respiratory Rate Blood Pressure Blood Pressure [Left Arm] Pulse Oximetry Oxygen Delivery Method 04/23/23 12:00 04/23/23 08:40 04/23/23 08:50 Temperature Pulse Rate 82 76 90 Pulse Rate [Monitor] Respiratory Rate Blood Pressure Blood Pressure [Left Arm] Pulse Oximetry Oxygen Delivery Method 04/23/23 09:00 04/23/23 09:01 04/23/23 09:01 Temperature Pulse Rate 83 93 H Pulse Rate [Monitor] Respiratory Rate Blood Pressure 111/83 H Blood Pressure [Left Arm] Pulse Oximetry 96 Oxygen Delivery Method 04/23/23 09:01 04/23/23 09:10 04/23/23 09:20 Temperature Pulse Rate 169 H 94 H Pulse Rate [Monitor] Respiratory Rate Blood Pressure 111/83 H Blood Pressure [Left Arm] Pulse Oximetry Oxygen Delivery Method 04/23/23 09:30 07/05/23 09:40 04/23/23 09:50 Temperature Pulse Rate 121 H 97 H 124 H Pulse Rate [Monitor] Respiratory Rate Blood Pressure Blood Pressure [Left Arm] Pulse Oximetry Oxygen Delivery Method 04/23/23 10:00 04/23/23 10:12 04/23/23 10:20 Temperature Pulse Rate 77 99 H 89 Pulse Rate [Monitor] Respiratory Rate Blood Pressure Blood Pressure [Left Arm] Pulse Oximetry Oxygen Delivery Method 04/23/23 10:30 04/23/23 10:40 04/23/23 10:50 Temperature Pulse Rate 131 H 106 H 142 H Pulse Rate [Monitor] Respiratory Rate Blood Pressure Blood Pressure [Left Arm] Pulse Oximetry Oxygen Delivery Method 04/23/23 11:00 04/23/23 11:10 04/23/23 11:20 Temperature Pulse Rate 99 H 133 H 121 H Pulse Rate [Monitor] Respiratory Rate Blood Pressure Blood Pressure [Left Arm] Pulse Oximetry Oxygen Delivery Method 04/23/23 11:35 04/23/23 11:40 04/23/23 11:50 Temperature Pulse Rate 145 H 132 H 84 Pulse Rate [Monitor] Respiratory Rate Blood Pressure Blood Pressure [Left Arm] Pulse Oximetry Oxygen Delivery Method 04/23/23 12:00 04/23/23 12:10 04/23/23 12:20 Temperature 97.9 F Pulse Rate 108 H 75 77 Pulse Rate [Monitor] Respiratory Rate Blood Pressure 115/73 Blood Pressure [Left Arm] Pulse Oximetry 96 Oxygen Delivery Method 04/23/23 12:20 Temperature Pulse Rate 90 Pulse Rate [Monitor] Respiratory Rate Blood Pressure Blood Pressure [Left Arm] Pulse Oximetry Oxygen Delivery Method Documenting provider has reviewed patient's vital signs: yes Common normals: oriented x3 General appearance: cooperative and comfortable Orientation/consciousness: Yes awake, Yes oriented to person, Yes oriented to place and Yes oriented to time Respiratory Common normals: normal respiratory effort Effort & inspection: able to speak in complete sentences and symmetric chest movement Auscultation: clear to auscultation bilaterally Cardio Common normals: no JVD, regular rate and regular rhythm Rate: tachycardic Rhythm: abnormal rhythm Neuro Common normals: oriented x3 Sensorium/orientation: awake, alert and oriented to person Motor exam: tremor resting tremor bialteral upper extremity Results Labs and Meds Lab results: CBC 04/23/23 Range/Units 03:57 WBC 5.1 (4.0-11.0) 10^3/uL RBC 4.65 L (4.70-6.10) 10^6/uL Hgb 14.6 (14.0-18.0) g/dL Hct 42.4 (42.0-54.0) % Plt Count 183 (150-450) 10^3/uL Comprehensive Metabolic Panel 04/23/23 Range/Units 03:57 Sodium 137 (136-145) mmol/L Potassium 3.8 (3.5-5.1) mmol/L Chloride 104 (98-107) mmol/L Carbon Dioxide 27.3 (21.0-32.0) mmol/L BUN 17.0 (7.0-18.0) mg/dL Creatinine 0.87 (0.70-1.30) mg/dL Glucose 227 H (74-106) mg/dL Calcium 9.0 (8.5-10.1) mg/dL Intake and Output 04/22/23 04/23/23 04/23/23 23:59 07:59 15:59 Intake Total 250 / 250 Balance 250 / 250 Intake: Other 125 / 125 IV 125 / 125 dilTIAZem HCL 125 mg In 0.9 % 125 / 125 Sodium Chloride 100 ml @ 10 mls /hr IV Q12H [facility] Rx#:[id number] Other: # Voids 1 Imaging and Cardiology Echo: pending Assessment and Plan Assessment and Plan (1) Rapid atrial fibrillation: Assessment and Plan: Patient has had A-fib RVR with new onset HFrEF with preliminary EF 35% -I will recommend patient to be transferred to [facility] for GANGA cardioversion and possible ischemic evaluation new onset HFrEF -He has had negative troponins here, elevated BNP and lower extremity swelling seem to be resolved with Lasix 40 mg IV -Follow-up in cardiology clinic within 1 to 2 weeks of discharge -Continue Cardizem we will and Maurice, [id number] at least 2 for history of hypertension and HFrEF, hemodynamically at this time he is tolerating Cardizem despite low EF and will continue for rate control purposes until transferred for GANGA cardioversion -Continue Lasix 40 mg daily for HFrEF -Consider adding GDMT for HFrEF including KENYON/ARB, MRA, SGLT2i --at the moment patient is borderline hypotensive blood pressure 108/80 and will hold off at this time -He is today euvolemic and compensated -Plan discussed with Dr. Chen (2) Edema, peripheral: Assessment and Plan: Continue Lasix (3) Hypokalemia: Assessment and Plan: Replace electrolytes as appropriate Plan 1. Afib with RVR 2. LE edema 3. Hypokalemia Improved with IV cardizem but remains in afib. Start oral metoprolol and wean off drip. Check echo to assess EF. Anticoagulate with lovenox and will need oral anticoagulation upon discharge. Continue IV lasix for edema. Replace potassium. Will need over 2 midnights in the hospital.
[2023-04-23] MEDS: ACETAMINOPHEN 500 MG TABLET 1000 MG PO (21:17)
--- NOTE | 2023-04-24 11:06 | PM.DS1 ---
DS: Providers Provider Date of admission: 04/19/23 18:02 Primary care physician: Non-Staff Physician, Consults: 04/21/23 10:29 Physical Therapy Eval and Treat Routine 04/23/23 10:18 Consult to Cardiology Routine Consulting Provider: Lisa Pelaez Anticipated date of discharge: 04/23/23 DS: Diagnosis Discharge Diagnosis (1) Rapid atrial fibrillation: (2) Edema, peripheral: (3) Hypokalemia: Plan Primary diagnosis: Afib with RVR Secondary diagnosis: 1. Acute on chronic HFREF 2. Lumbar DDD 3. Alcohol abuse 4. Hypokalemia DS: Summary Hospital Course Hospital Course: Reason for admission: See H&P for details. 57 y/o male with no significant past medical history presents to ER with leg swelling and heart racing.? Reports palpitations off and on for about 1 week.? Initially mild and only lasted few minutes.? Noticed heart racing and mild discomfort in chest.? Mild SOB.? Not lightheaded and no diaphoresis.? Symptoms persisted overnight and in am noticed severe swelling of both feet.? To ER and found rapid afib.? Chest x-ray normal but BNP elevated.? Given IV cardizem and lasix.? Pulse improved but still elevated and admitted.? Hospital course: Started cardizem drip and IV lasix.? Rate improved overnight and less edema.? Remains in afib but normal pulse.? Added oral metoprolol. Replaced potassium. Developed weakness in right foot and not able to move toes. Very difficult to ambulate. X-ray lumbar spine showed DDD and started PT. Started solu-meddrol. Weaned off drip and increased metoprolol. Started oral Eliquis. Echo pending but preliminary read showed EF 39%. Added lisinopril and changed to oral lasix. Again developed rapid afib and no response to IV cardizem bolus and resumed drip. Foot remained weak but gradually improving. Consulted cardiology who recommended transfer to [facility] for GANGA and cardioversion due to difficulty controlling rate. Contacted [facility] and accepted for transfer. Bed available and transferred in stable condition. Time Spent with Patient Time attestation: Total time spent providing and/or coordinating discharge services: Exam Constitutional Vital Signs - 24 hr 04/23/23 12:00 04/23/23 11:10 04/23/23 11:20 Temperature Pulse Rate 82 133 H 121 H Pulse Rate [Monitor] Respiratory Rate Blood Pressure Pulse Oximetry Oxygen Delivery Method 04/23/23 11:35 04/23/23 11:40 04/23/23 11:50 Temperature Pulse Rate 145 H 132 H 84 Pulse Rate [Monitor] Respiratory Rate Blood Pressure Pulse Oximetry Oxygen Delivery Method 04/23/23 12:00 04/23/23 12:10 04/23/23 12:20 Temperature 97.9 F Pulse Rate 108 H 75 77 Pulse Rate [Monitor] Respiratory Rate Blood Pressure 115/73 Pulse Oximetry 96 Oxygen Delivery Method 04/23/23 12:20 04/23/23 15:30 04/23/23 16:14 Temperature Pulse Rate 90 120 H 93 H Pulse Rate [Monitor] Respiratory Rate Blood Pressure Pulse Oximetry Oxygen Delivery Method 04/23/23 12:20 04/23/23 12:20 04/23/23 12:30 Temperature 98 F Pulse Rate 93 H 81 Pulse Rate [Monitor] Respiratory Rate 18 Blood Pressure 115/73 115/73 Pulse Oximetry 96 Oxygen Delivery Method 04/23/23 12:40 04/23/23 12:50 04/23/23 13:00 Temperature Pulse Rate 76 124 H 100 H Pulse Rate [Monitor] Respiratory Rate Blood Pressure Pulse Oximetry Oxygen Delivery Method 04/23/23 13:10 04/23/23 13:20 04/23/23 13:30 Temperature Pulse Rate 78 75 83 Pulse Rate [Monitor] Respiratory Rate Blood Pressure Pulse Oximetry Oxygen Delivery Method 04/23/23 13:40 04/23/23 13:50 04/23/23 14:00 Temperature Pulse Rate 143 H 89 113 H Pulse Rate [Monitor] Respiratory Rate Blood Pressure Pulse Oximetry Oxygen Delivery Method 04/23/23 14:10 04/23/23 14:20 04/23/23 14:30 Temperature Pulse Rate 96 H 81 78 Pulse Rate [Monitor] Respiratory Rate Blood Pressure Pulse Oximetry Oxygen Delivery Method 04/23/23 14:40 04/23/23 14:50 04/23/23 15:00 Temperature Pulse Rate 82 84 83 Pulse Rate [Monitor] Respiratory Rate Blood Pressure Pulse Oximetry Oxygen Delivery Method 04/23/23 15:10 04/23/23 15:20 04/23/23 15:30 Temperature Pulse Rate 75 77 114 H Pulse Rate [Monitor] Respiratory Rate Blood Pressure Pulse Oximetry Oxygen Delivery Method 04/23/23 15:40 04/23/23 15:50 04/23/23 16:00 Temperature Pulse Rate 99 H 78 87 Pulse Rate [Monitor] Respiratory Rate Blood Pressure Pulse Oximetry Oxygen Delivery Method 04/23/23 16:09 04/23/23 16:09 04/23/23 16:10 Temperature Pulse Rate 87 102 H Pulse Rate [Monitor] Respiratory Rate Blood Pressure 108/80 H Pulse Oximetry Oxygen Delivery Method 04/23/23 19:00 04/23/23 16:20 04/23/23 16:30 Temperature Pulse Rate 79 85 77 Pulse Rate [Monitor] Respiratory Rate Blood Pressure Pulse Oximetry 95 Oxygen Delivery Method 04/23/23 16:40 04/23/23 16:50 04/23/23 17:00 Temperature Pulse Rate 101 H 75 97 H Pulse Rate [Monitor] Respiratory Rate Blood Pressure Pulse Oximetry Oxygen Delivery Method 04/23/23 17:10 04/23/23 17:20 04/23/23 17:30 Temperature Pulse Rate 82 78 125 H Pulse Rate [Monitor] Respiratory Rate Blood Pressure Pulse Oximetry Oxygen Delivery Method 04/23/23 17:40 04/23/23 17:50 04/23/23 18:00 Temperature Pulse Rate 116 H 84 85 Pulse Rate [Monitor] Respiratory Rate Blood Pressure Pulse Oximetry Oxygen Delivery Method 04/23/23 18:10 04/23/23 18:20 04/23/23 18:30 Temperature Pulse Rate 70 89 71 Pulse Rate [Monitor] Respiratory Rate Blood Pressure Pulse Oximetry Oxygen Delivery Method 04/23/23 18:40 04/23/23 18:50 04/23/23 19:00 Temperature Pulse Rate 128 H 130 H 109 H Pulse Rate [Monitor] Respiratory Rate Blood Pressure Pulse Oximetry Oxygen Delivery Method 04/23/23 19:04 04/23/23 19:04 04/23/23 19:04 Temperature 98.1 F Pulse Rate 93 H Pulse Rate [Monitor] 95 H Respiratory Rate 18 Blood Pressure 114/75 114/75 Pulse Oximetry 95 Oxygen Delivery Method Room Air 04/23/23 19:10 04/23/23 19:20 04/23/23 20:00 Temperature Pulse Rate 110 H 111 H 95 H Pulse Rate [Monitor] Respiratory Rate Blood Pressure Pulse Oximetry Oxygen Delivery Method 04/23/23 21:00 Temperature Pulse Rate 135 H Pulse Rate [Monitor] Respiratory Rate Blood Pressure Pulse Oximetry Oxygen Delivery Method Documenting provider has reviewed patient's vital signs: yes Common normals: apparent distress, negative for oriented x3 and negative for alert HENMT Common normals: negative for normocephalic Eye Common normals: negative for PERRL and EOMs not intact bilaterally Respiratory Common normals: clear to auscultation bilaterally Cardio Common normals: no gallops, no murmurs and no rub Rhythm: abnormal rhythm irregularly irregular GI Common normals: Normal to inspection, nondistended, normoactive bowel sounds present and non-tender Extremity General: no edema Discharge Plan Discharge Disposition: [facility] Acute Care Hospital Condition: Fair Discharge Date/Time: 04/23/23 22:58 Discharge location: [facility]# [id number]
== END 2023-04-23 22:58 | disposition short-term general hospital (02) | DRG 201 ==
LOC: ER 17:19 → ICU 18:07 → MS 04-22 10:58 → ICU 04-22 18:09
PROVIDERS: Admitting Provider Family Medicine; Emergency Provider Emergency Medicine; Visit Provider Family Medicine
DX: I48.91 Unspecified atrial fibrillation (principal); I11.0 Hypertensive heart disease with heart failure; I50.23 Acute on chronic systolic (congestive) heart failure; R60.0 Localized edema; E87.6 Hypokalemia; F17.210 Nicotine dependence, cigarettes, uncomplicated; F10.239 Alcohol dependence with withdrawal, unspecified; R45.1 Restlessness and agitation; R53.1 Weakness; M51.36 Other intervertebral disc degeneration, lumbar region; Z80.9 Family history of malignant neoplasm, unspecified
CPT/HCPCS: 36415; 71045; 71046; 72100; 80048; 80053; 80061; 82607; 82746; 83880; 84484; 85007; 85025; 93005; 93306; 96372; 96374; 96375; 96376; 97161; 99285; J2930

== ENCOUNTER 2023-06-14 16:35 | Inpatient (IN) | payer OTHER, SELFPAY ==
[2023-06-14] VITALS (23 sets, daily range): BP systolic 109–145; BP diastolic 68–99; PULSE 83–160; RESP 14–22; TEMP 36.6–36.9; O2SAT 96–100; BMI 26.3; BMI 25.1
--- NOTE | 2023-06-14 16:41 | ECG_ITS ---
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: : 1965 Requested By: Order Number: [id number] Reading MD: RIANNA LOWE Measurements Intervals [place] Rate: 143 P: -[id number] NM: -[id number] QRS: 103 QRSD: 84 T: -63 QT: 302 QTc: 385 Interpretive Statements [id number] Atrial fibrillation with rapid ventricular response with aberrant conduction, or ventricular premature complexes [id number] Nonspecific Twave abnormality, probably digitalis effect 7100 Abnormal right axis deviation 9140 abnormal rhythm ECG Compared to ECG 04/20/2023 07:19:43 Ventricular premature complex(es) now present Aberrant conduction of supraventricular beat(s) now present Possible ischemia no longer present Electronically Signed On 06-15-2023 18:14:01 EDT by RIANNA LOWE
--- NOTE | 2023-06-14 16:50 | XR_ITS ---
[address] [address] Patient Name: BERNIE CANO MRN: [id number] date: 1965 Sex: M Assigned Patient Location: ER Current Patient Location: ER Accession/Order Number: [id number] Exam Date: 06/14/2023 17:10 Report Date: 06/14/2023 17:24 At the request of: EMIL DUDLEY Procedure: XR chest 1V EXAMINATION: XR chest 1V HISTORY: Chest pain COMPARISON: Chest x-ray 04/19/2023 TECHNIQUE: Portable chest FINDINGS: The lung parenchyma is free of consolidation or infiltrate. No pneumothorax or pleural effusion. The cardiac, mediastinal and hilar contours are normal. The visualized osseous structures exhibit no gross abnormality. XR/XR chest 1V IMPRESSION: No acute cardiopulmonary abnormality. Electronically authenticated by: KAPIL BAILEY Date: 06/14/2023 17:24
--- NOTE | 2023-06-14 16:55 | ED.GENADUL1 ---
Documented by User: Adrien Freeman MD 06/14/23 18:37 HPI - General Adult General Chief complaint: Chest Pain Stated complaint: Chest Pain, Hx A-fib Time Seen by Provider: 06/14/23 16:50 Source: patient Mode of arrival: walk-in Limitations: no limitations History of Present Illness HPI narrative: This document has been composed with a new electronic medical record and dragging voice recognition system. 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 He's been at the cardiology center at [facility] his had two previous cardioversions for atrial fib. He has not had a cardiac catheterization but he did have an echocardiogram per his history. He states that he also is known to have valvular heart disease, he said they did not suggest any surgical intervention. He states that he had the last thirty eversion does previous Friday and he went home feeling fine but then Friday of this week he thought he was back in atrial fibrillation. He came in today because not only his heart beating irregular outs beating fast and he feels fatigued but he thinks it's been irregular since Friday. He has not had previous heart catheterization or myocardial infarction previously. He was not told that he had congestive heart failure. He is not on any blood thinners but he is on a lot of other meds. He has not been able to stop smoking or using alcohol Related Data Home Medications Medication Instructions Recorded Confirmed amiodarone 200 mg tablet 200 mg PO Q12H 06/14/23 06/14/23 apixaban 5 mg tablet (Eliquis) 5 mg PO Q12H 06/14/23 06/14/23 dapagliflozin propanediol 10 mg 10 mg PO DAILY 06/14/23 06/14/23 tablet (Farxiga) furosemide 20 mg tablet 20 mg PO DAILY 06/14/23 06/14/23 metoprolol succinate 100 mg 100 mg PO DAILY 06/14/23 06/14/23 tablet,extended release 24 hr pantoprazole 40 mg tablet,delayed 40 mg PO DAILY 06/14/23 06/14/23 release sacubitril 24 mg-valsartan 26 mg 1 tab PO BID 06/14/23 06/14/23 tablet (Entresto) Allergies Allergy/AdvReac Type Severity Reaction Status Date / Time No Known Drug Allergies Allergy Verified 04/19/23 14:57 [facility] Medical History (Updated 06/14/23 @ 18:37 by Adrien Freeman MD) Surgical History (Updated 04/19/23 @ 18:18 by Palmira Stevens, RN) Family History (Updated 04/19/23 @ 18:19 by Palmira Stevens RN) Mother Family history of cancer Social History (Updated 04/19/23 @ 18:22 by Palmira Stevens RN) Within the past year, how often did you have a drink containing alcohol: 4 or more times a week Within the past year, how many standard drinks containing alcohol did you have on a typical day: 10 or more Within the past year, how often did you have six or more drinks on one occasion: daily or almost daily Total score: 12 Score interpretation: A score of 4 or more indicates drinking is likely to affect patient's safety. Smoking status: Current every day smoker Non-prescribed substance use: denies use Highest level of school completed/degree received: 12th grade, no diploma Are you now , , , , never or living with a partner: In a typical week, how many times do you talk on the telephone with family, friends, or neighbors: 3 or more times per week How often do you get together with friends or relatives: twice per week How often do you attend voodoo or denominational services: never Do you belong to any clubs or organizations such as voodoo groups unions, fraternal or athletic groups, or school groups: no Total score: 1 Score interpretation: A score of less than or equal to 1 indicates the most socially isolated. Little interest or pleasure in doing things: not at all Feeling down, depressed, or hopeless: not at all Feel stressed/tense/nervous/anxious/difficulty sleeping: not at all Do you think of yourself as: straight/heterosexual Gender Identity: male Exam Narrative Exam Narrative: awake alert oriented ?3 not in extremis. Twelve-lead EKG shows atrial fibrillation rapid RVR. Blood pressure is 145/84. His pulse ox is normal. Constitutional skin is warm and dry is not diaphoretic pulses strong the upper extremities. I shows no scleral icterus or pallor. Neck shows no jugular vein distention. Chest shows lungs to be clear with no wheezes rales or rhonchi. Heart sounds are regular irregularity. Possible a grade 2/6 systolic murmur. Leg show no evidence of edema swelling. Peripheral pulses are strong. Abdomen he has no abdominal discomfort. Neurological cognition and mentation neurological examination shows no focal findings. Constitutional Vital Signs, click to edit/add: Last Vital Signs Temp 98.5 F 06/14/23 16:37 Pulse 115 H 06/14/23 20:29 Resp 22 06/14/23 20:29 BP 110/88 06/14/23 20:29 Pulse Ox 96 06/14/23 20:29 O2 Del Method Room Air 06/14/23 20:29 Course Vital Signs Vital signs: Vital Signs Temperature 98.5 F 06/14/23 16:37 Pulse Rate 149 H 06/14/23 16:37 Respiratory Rate 20 06/14/23 16:37 Blood Pressure 145/84 H 06/14/23 16:37 Pulse Oximetry 100 06/14/23 16:37 Oxygen Delivery Method Room Air 06/14/23 16:37 Temperature 98.5 F 06/14/23 16:37 Pulse Rate 115 H 06/14/23 20:29 Respiratory Rate 22 06/14/23 20:29 Blood Pressure 110/88 06/14/23 20:29 Pulse Oximetry 96 06/14/23 20:29 Oxygen Delivery Method Room Air 06/14/23 20:29 Medical Decision Making MDM Narrative Medical decision making narrative: this patient presents to emergency room with atrial fibrillation recurring in nature. He's had two failed electrical cardioversions. He has been on amiodarone for nearly one month 200 mg twice a day. He's also on beta blockers. He is not taking Lasix. He's been told that his potassium is been low before and it's low again today. We called the on-call locomotive engineer Dr. linares recommended that the patient be given amiodarone 300 mg.Given IV. I started the patient on Cardizem drip and I did not want both drips going at the same time so we discontinued the Cardizem and gave the amiodarone. The potassium for the patient is low again at 3.0. We will give some oral supplementation. The 1st drip of amiodarone was not successful in converting the patient so a 2nd dose of 150 mg will be given. At that time if he still has a rapid ventricular response will restart the Cardizem drip. Care will be turned over to Dr. Ellis to recontact the locomotive engineer in [place] if these measures are not successful in slowing or converting the patient Diagnosis / recurrent atrial fib with RVR Lab Data Labs: Lab Results 06/14/23 Range/Units 16:50 WBC 7.3 (4.0-11.0) 10^3/uL RBC 4.93 (4.70-6.10) 10^6/uL Hgb 15.4 (14.0-18.0) g/dL Hct 44.2 (42.0-54.0) % MCV 89.7 (80.0-94.0) fL MCH 31.2 (25.9-34.0) pg MCHC 34.8 (29.9-35.2) g/dL RDW 14.6 (11.0-15.0) % Plt Count 180 (150-450) 10^3/uL MPV 10.1 (9.5-13.5) fL Neut % (Auto) 61.5 (43.0-75.0) % Lymph % (Auto) 28.6 (20.5-60.0) % [place] % (Auto) 8.8 (1.7-12.0) % Eos % (Auto) 0.3 L (0.9-7.0) % Baso % (Auto) 0.7 (0.2-2.0) % Neut # (Auto) 4.5 (1.4-6.5) 10^3/uL Lymph # (Auto) 2.1 (1.2-3.8) 10^3/uL [place] # (Auto) 0.6 (0.3-0.8) 10^3/uL Eos # (Auto) 0.0 (0.0-0.7) 10^3/uL Baso # (Auto) 0.1 (0.0-0.1) 10^3/uL Abs Immat Gran (auto) 0.01 (0.00-0.03) 10^3/uL Imm/Tot Granulo (auto) 0.1 (0.0-0.5) % PT 11.4 (9.0-11.6) sec INR 1.08 APTT 25.1 (22.3-36.2) sec Sodium 138 (136-145) mmol/L Potassium 3.0 L (3.5-5.1) mmol/L Chloride 101 (98-107) mmol/L Carbon Dioxide 27.3 (21.0-32.0) mmol/L Anion Gap 12.7 BUN 10.0 (7.0-18.0) mg/dL Creatinine 1.27 (0.70-1.30) mg/dL Est GFR ( Amer) >60 (>=60) Est GFR (Non-Af Amer) 59 L (>=60) BUN/Creatinine Ratio 7.9 Glucose 98 (74-106) mg/dL Calcium 9.5 (8.5-10.1) mg/dL Total Bilirubin 1.7 H (0.2-1.0) mg/dL AST 26 (15-37) U/L ALT 27 (16-63) U/L Alkaline Phosphatase 63 (46-116) U/L Troponin I High Sens 31.9 (4.0-76.1) pg/mL NT-Pro-B Natriuret Pep 5799.0 H* (<=900.0) pg/mL Total Protein 7.3 (6.4-8.2) g/dL Albumin 4.0 (3.4-5.0) g/dL Globulin 3.3 g/dL Albumin/Globulin Ratio 1.2 Discharge Plan Discharge Chief Complaint: Chest Pain Clinical Impression: Atrial fibrillation with rapid ventricular response Patient Disposition: Admitted as Observation Prescriptions / Home Meds: No Action amiodarone 200 mg tablet 200 mg PO Q12H Eliquis 5 mg tablet 5 mg PO Q12H Farxiga 10 mg tablet 10 mg PO DAILY furosemide 20 mg tablet 20 mg PO DAILY metoprolol succinate 100 mg tablet extended release 24 hr 100 mg PO DAILY pantoprazole 40 mg tablet,delayed release (DR/EC) 40 mg PO DAILY Entresto 24-26 mg tablet 1 tab PO BID Referrals: Physician,Non-Staff, MD [Primary Care Provider] - 1 week Documented by User: Mario Ellis MD 06/14/23 20:37 HPI - General Adult General Chief complaint: Chest Pain Stated complaint: Chest Pain, Hx A-fib Time Seen by Provider: 06/14/23 16:50 Related Data Home Medications Medication Instructions Recorded Confirmed amiodarone 200 mg tablet 200 mg PO Q12H 06/14/23 06/14/23 apixaban 5 mg tablet (Eliquis) 5 mg PO Q12H 06/14/23 06/14/23 dapagliflozin propanediol 10 mg 10 mg PO DAILY 06/14/23 06/14/23 tablet (Farxiga) furosemide 20 mg tablet 20 mg PO DAILY 06/14/23 06/14/23 metoprolol succinate 100 mg 100 mg PO DAILY 06/14/23 06/14/23 tablet,extended release 24 hr pantoprazole 40 mg tablet,delayed 40 mg PO DAILY 06/14/23 06/14/23 release sacubitril 24 mg-valsartan 26 mg 1 tab PO BID 06/14/23 06/14/23 tablet (Entresto) Allergies Allergy/AdvReac Type Severity Reaction Status Date / Time No Known Drug Allergies Allergy Verified 04/19/23 14:57 [facility] Medical History (Updated 06/14/23 @ 18:37 by Adrien Freeman MD) Surgical History (Updated 04/19/23 @ 18:18 by Palmira Stevens RN) Family History (Updated 04/19/23 @ 18:19 by Palmira Stevens RN) Mother Family history of cancer Social History (Updated 04/19/23 @ 18:22 by Palmira Stevens RN) Within the past year, how often did you have a drink containing alcohol: 4 or more times a week Within the past year, how many standard drinks containing alcohol did you have on a typical day: 10 or more Within the past year, how often did you have six or more drinks on one occasion: daily or almost daily Total score: 12 Score interpretation: A score of 4 or more indicates drinking is likely to affect patient's safety. Smoking status: Current every day smoker Non-prescribed substance use: denies use Highest level of school completed/degree received: 12th grade, no diploma Are you now , , , , never or living with a partner: In a typical week, how many times do you talk on the telephone with family, friends, or neighbors: 3 or more times per week How often do you get together with friends or relatives: twice per week How often do you attend voodoo or denominational services: never Do you belong to any clubs or organizations such as voodoo groups unions, fraternal or athletic groups, or school groups: no Total score: 1 Score interpretation: A score of less than or equal to 1 indicates the most socially isolated. Little interest or pleasure in doing things: not at all Feeling down, depressed, or hopeless: not at all Feel stressed/tense/nervous/anxious/difficulty sleeping: not at all Do you think of yourself as: straight/heterosexual Gender Identity: male Exam Constitutional Vital Signs, click to edit/add: Last Vital Signs Temp 98.5 F 06/14/23 16:37 Pulse 115 H 06/14/23 20:29 Resp 22 06/14/23 20:29 BP 110/88 06/14/23 20:29 Pulse Ox 96 06/14/23 20:29 O2 Del Method Room Air 06/14/23 20:29 Course Vital Signs Vital signs: Vital Signs Temperature 98.5 F 06/14/23 16:37 Pulse Rate 149 H 06/14/23 16:37 Respiratory Rate 20 06/14/23 16:37 Blood Pressure 145/84 H 06/14/23 16:37 Pulse Oximetry 100 06/14/23 16:37 Oxygen Delivery Method Room Air 06/14/23 16:37 Temperature 98.5 F 06/14/23 16:37 Pulse Rate 115 H 06/14/23 20:29 Respiratory Rate 22 06/14/23 20:29 Blood Pressure 110/88 06/14/23 20:29 Pulse Oximetry 96 06/14/23 20:29 Oxygen Delivery Method Room Air 06/14/23 20:29 Medical Decision Making MDM Narrative Medical decision making narrative: this patient presents to emergency room with atrial fibrillation recurring in nature. He's had two failed electrical cardioversions. He has been on amiodarone for nearly one month 200 mg twice a day. He's also on beta blockers. He is not taking Lasix. He's been told that his potassium is been low before and it's low again today. We called the on-call locomotive engineer Dr. linares recommended that the patient be given amiodarone 300 mg.Given IV. I started the patient on Cardizem drip and I did not want both drips going at the same time so we discontinued the Cardizem and gave the amiodarone. The potassium for the patient is low again at 3.0. We will give some oral supplementation. The 1st drip of amiodarone was not successful in converting the patient so a 2nd dose of 150 mg will be given. At that time if he still has a rapid ventricular response will restart the Cardizem drip. Care will be turned over to Dr. Ellis to recontact the locomotive engineer in [place] if these measures are not successful in slowing or converting the patient Diagnosis / recurrent atrial fib with RVR care transferred at change of shift. Patient presents with A. Fib with RVR. He remains in A. Fib with RVR despite treatment in the department including amiodarone bolus, Diltiazem bolus and drip. Discussed with Dr Luo and he would like the patient admitted to the hospitalist service. Discussed with Dr Bethea and patient accepted for admission Lab Data Labs: Lab Results 06/14/23 Range/Units 16:50 WBC 7.3 (4.0-11.0) 10^3/uL RBC 4.93 (4.70-6.10) 10^6/uL Hgb 15.4 (14.0-18.0) g/dL Hct 44.2 (42.0-54.0) % MCV 89.7 (80.0-94.0) fL MCH 31.2 (25.9-34.0) pg MCHC 34.8 (29.9-35.2) g/dL RDW 14.6 (11.0-15.0) % Plt Count 180 (150-450) 10^3/uL MPV 10.1 (9.5-13.5) fL Neut % (Auto) 61.5 (43.0-75.0) % Lymph % (Auto) 28.6 (20.5-60.0) % [place] % (Auto) 8.8 (1.7-12.0) % Eos % (Auto) 0.3 L (0.9-7.0) % Baso % (Auto) 0.7 (0.2-2.0) % Neut # (Auto) 4.5 (1.4-6.5) 10^3/uL Lymph # (Auto) 2.1 (1.2-3.8) 10^3/uL [place] # (Auto) 0.6 (0.3-0.8) 10^3/uL Eos # (Auto) 0.0 (0.0-0.7) 10^3/uL Baso # (Auto) 0.1 (0.0-0.1) 10^3/uL Abs Immat Gran (auto) 0.01 (0.00-0.03) 10^3/uL Imm/Tot Granulo (auto) 0.1 (0.0-0.5) % PT 11.4 (9.0-11.6) sec INR 1.08 APTT 25.1 (22.3-36.2) sec Sodium 138 (136-145) mmol/L Potassium 3.0 L (3.5-5.1) mmol/L Chloride 101 (98-107) mmol/L Carbon Dioxide 27.3 (21.0-32.0) mmol/L Anion Gap 12.7 BUN 10.0 (7.0-18.0) mg/dL Creatinine 1.27 (0.70-1.30) mg/dL Est GFR ( Amer) >60 (>=60) Est GFR (Non-Af Amer) 59 L (>=60) BUN/Creatinine Ratio 7.9 Glucose 98 (74-106) mg/dL Calcium 9.5 (8.5-10.1) mg/dL Total Bilirubin 1.7 H (0.2-1.0) mg/dL AST 26 (15-37) U/L ALT 27 (16-63) U/L Alkaline Phosphatase 63 (46-116) U/L Troponin I High Sens 31.9 (4.0-76.1) pg/mL NT-Pro-B Natriuret Pep 5799.0 H* (<=900.0) pg/mL Total Protein 7.3 (6.4-8.2) g/dL Albumin 4.0 (3.4-5.0) g/dL Globulin 3.3 g/dL Albumin/Globulin Ratio 1.2 Discharge Plan Discharge Chief Complaint: Chest Pain Clinical Impression: Atrial fibrillation with rapid ventricular response Patient Disposition: Admitted as Observation Prescriptions / Home Meds: No Action amiodarone 200 mg tablet 200 mg PO Q12H Eliquis 5 mg tablet 5 mg PO Q12H Farxiga 10 mg tablet 10 mg PO DAILY furosemide 20 mg tablet 20 mg PO DAILY metoprolol succinate 100 mg tablet extended release 24 hr 100 mg PO DAILY pantoprazole 40 mg tablet,delayed release (DR/EC) 40 mg PO DAILY Entresto 24-26 mg tablet 1 tab PO BID Referrals: Physician,Non-Staff, MD [Primary Care Provider] - 1 week
[2023-06-14 16:59] LABS: Basophils Absolute Auto 0.1 10^3/uL (0.0-0.1); Basophils Percent Auto 0.7 % (0.2-2.0); Eosinophils Percent Auto 0.3 % (0.9-7.0); Hematocrit 44.2 % (42.0-54.0); Hemoglobin 15.4 g/dL (14.0-18.0); Immature Granulocytes Abs Auto 0.01 10^3/uL (0.00-0.03); Immature Granulocytes Pct Auto 0.1 % (0.0-0.5); Lymphocytes Absolute Auto 2.1 10^3/uL (1.2-3.8); Lymphocytes Percent Auto 28.6 % (20.5-60.0); Mean Corpuscular HGB Conc 34.8 g/dL (29.9-35.2); Mean Corpuscular Hemoglobin 31.2 pg (25.9-34.0); Mean Corpuscular Volume 89.7 fL (80.0-94.0); Mean Platelet Volume 10.1 fL (9.5-13.5); Monocytes Absolute Auto 0.6 10^3/uL (0.3-0.8); Monocytes Percent Auto 8.8 % (1.7-12.0); Neutrophils Absolute Auto 4.5 10^3/uL (1.4-6.5); Neutrophils Percent Auto 61.5 % (43.0-75.0); Platelet Count 180 10^3/uL (150-450); Red Blood Count 4.93 10^6/uL (4.70-6.10); Red Cell Distribution Width 14.6 % (11.0-15.0); White Blood Count 7.3 10^3/uL (4.0-11.0)
[2023-06-14] MEDS: dilTIAZem HCL 125 MG in 0.9 % SODIUM CHLORIDE 100 ML IV (17:05)
[2023-06-14] MEDS: DILTIAZEM HCL 25 MG/5 ML VIAL 20 MG IV (17:05)
[2023-06-14 17:14] LABS: INR 1.08; Partial Thromboplastin Time 25.1 sec (22.3-36.2); Prothrombin Time 11.4 sec (9.0-11.6)
[2023-06-14 17:22] LABS: Alanine Aminotransferase 27 U/L (16-63); Albumin Globulin Ratio 1.2; Alkaline Phosphatase 63 U/L (46-116); Anion Gap 12.7; Aspartate Amino Transferase 26 U/L (15-37); BUN Creatinine Ratio 7.9; Bilirubin Total 1.7 mg/dL (0.2-1.0); Calcium 9.5 mg/dL (8.5-10.1); Carbon Dioxide 27.3 mmol/L (21.0-32.0); Chloride 101 mmol/L (98-107); Estimated GFR (African America >60 (>=60); Estimated GFR (Non-African Ame 59 (>=60); Globulin 3.3 g/dL; Glucose 98 mg/dL (74-106); Sodium 138 mmol/L (136-145); Total Protein 7.3 g/dL (6.4-8.2); Troponin I High Sensitivity 31.9 pg/mL (4.0-76.1)
[2023-06-14] MEDS: AMIODARONE IN DEXTROSE,ISO-OSM 150 MG/100 ML PIGGYBACK 600 MG IV ×2 (17:25→18:15)
[2023-06-14] MEDS: POTASSIUM CHLORIDE 10 MEQ ER TABLET 40 MEQ PO (18:23)
--- NOTE | 2023-06-14 22:57 | P.PN_ITS ---
Progress Note: Subjective Subjective Interval history: CC: michelle HPI: This is a very pleasant 57-year-old male who presents with above complaints. Patient stating that he developed paroxysmal atrial fibrillation a few months ago. He has been on and off. There is no aggravating or alleviating factors. He was successfully cardioverted few times, but patient his heart rate not holding up. Patient stating that he been moving some stuff in his attic when he felt palpitations and later on became very short of breath and came to emergency room. Patient found to be in atrial fibrillation again. He cardioverted and held sinus rhythm for short period of time, but then slipped again into atrial fibrillation. His air conditioning technician recommended to proceed with oral amiodarone in addition to Cardizem drip and metoprolol. If no improvement. Recommendation to transfer him in the morning to [facility] for further evaluation and work-up. Patient currently pain-free. He is not short of breath. Comfortable Exam Narrative Exam Narrative: Physical Exam: Not in distress, pleasant, lucid, cooperative, Head - atraumatic, eyes - pupils equal, round, reactive to light, extra ocular movement intact, MMM Neck - supple, thyroid not enlarged, LN not palpated Lungs - clear to auscultation, no dullness on percussion CVS - heart sounds S1, S2, no additional murmurs gallop, irregularly irregular, tachycardia Gastrointestinal?abdomen is soft, non-tender, non-distended, no organomegaly, positive bowel sounds Extremities no clubbing, cyanosis or edema Neurological?cranial nerve II?XII grossly intact, no meningeal signs, no cerebellar signs, no sensory deficit Musculoskeletal - joints, no effusions, ROM preserved Dermatological - the skin dry, warm, no rashes Psychiatric?patient is AAO X3, patient has normal affect Constitutional Vital Signs, click to edit/add: Last Vital Signs Temp 98 F 06/14/23 22:25 Pulse 88 06/14/23 22:25 Resp 18 06/14/23 22:25 BP 109/68 06/14/23 22:25 Pulse Ox 97 06/14/23 22:25 O2 Del Method Room Air 06/14/23 22:25 Progress Note: Objective Labs Labs: Short CBC 06/14/23 Range/Units 16:50 WBC 7.3 (4.0-11.0) 10^3/uL Hgb 15.4 (14.0-18.0) g/dL Hct 44.2 (42.0-54.0) % Plt Count 180 (150-450) 10^3/uL BMP 06/14/23 16:50 Sodium 138 Potassium 3.0 L Chloride 101 Carbon Dioxide 27.3 BUN 10.0 Creatinine 1.27 Glucose 98 Calcium 9.5 Liver Function 06/14/23 Range/Units 16:50 Total Bilirubin 1.7 H (0.2-1.0) mg/dL AST 26 (15-37) U/L ALT 27 (16-63) U/L Alkaline Phosphatase 63 (46-116) U/L Albumin 4.0 (3.4-5.0) g/dL Progress Note: A&P Assessment and Plan (1) Alcoholism: (2) Acute on chronic HFrEF (heart failure with reduced ejection fraction): (3) Atrial fibrillation with rapid ventricular response: Plan 1. Paroxysmal atrial fibrillation with rapid ventricular response?monitor on telemetry. Continue with amiodarone p.o., diltiazem drip, metoprolol. Patient is anticoagulated with Eliquis. I ordered echocardiogram to reassess degree of the heart failure and chamber size Patient might need to be transferred to [facility] if not converted overnight as per air conditioning technician 2. Heart failure with reduced ejection fraction. Possibly alcohol-related. Does not appear to be fluid overloaded. Continue to monitor. 3. Alcoholism. No withdrawal symptoms at present. Monitor closely. 4. Tobacco abuse?started patient on nicotine patch 5. DVT and GI prophylaxis END: As the provider for the telehealth service, I attest that I introduced myself to the patient, provided my credentials, disclosed by location and determined that based on a review of the patient's chart and discussion with members of the [facility] ent's treatment team, telemedicine via real-time, 2 way, and interactive audio and video platform is an appropriate and effective means of providing the service. ?The patient and I mutually agree this visit is appropriate for telemedicine. ?The virtual encounter was taken place from? [place], [place]. ?The encounter took approximately 35 minutes. ?The nurse was present during the entire time and I was able to move the stethoscope in appropriate directions. ?The patient was evaluated at the Hospital ? Portions of this note may be dictated using [employer] voice recognition software. Variances in spelling and vocabulary are possible and unintentional. Not all errors may be caught and/or corrected. Please notify the author if any discrepancies are noted and/or if the meaning of any statement is unclear.? ? Patient verbally consented for treatment via video visit with patient currently located at the [facility] and provider located in [place]. Telemedicine Attestation Telemedicine Attestation I conducted this encounter from [[place]] via secure live, [id number] video conference with the patient, located at [facility] with [atrial fibrillation]. Prior to the interview, the risks and benefits of telemedicine were discussed with the patient and verbal consent was obtained.
[2023-06-15] VITALS (126 sets, daily range): BP systolic 84–121; BP diastolic 66–86; PULSE 61–144; RESP 10–75; TEMP 36.6–36.8; O2SAT 95–97
[2023-06-15] MEDS: APIXABAN 5 MG TABLET PO ×3 (00:45→22:15)
[2023-06-15 05:09] LABS: Basophils Absolute Auto 0.1 10^3/uL (0.0-0.1); Basophils Percent Auto 0.8 % (0.2-2.0); Eosinophils Absolute Auto 0.1 10^3/uL (0.0-0.7); Hematocrit 41.2 % (42.0-54.0); Hemoglobin 13.9 g/dL (14.0-18.0); Immature Granulocytes Abs Auto 0.01 10^3/uL (0.00-0.03); Immature Granulocytes Pct Auto 0.2 % (0.0-0.5); Lymphocytes Absolute Auto 2.2 10^3/uL (1.2-3.8); Lymphocytes Percent Auto 35.9 % (20.5-60.0); Mean Corpuscular HGB Conc 33.7 g/dL (29.9-35.2); Mean Platelet Volume 10.6 fL (9.5-13.5); Monocytes Absolute Auto 0.5 10^3/uL (0.3-0.8); Neutrophils Absolute Auto 3.2 10^3/uL (1.4-6.5); Neutrophils Percent Auto 53.1 % (43.0-75.0); Platelet Count 159 10^3/uL (150-450); Red Blood Count 4.48 10^6/uL (4.70-6.10); Red Cell Distribution Width 14.9 % (11.0-15.0)
[2023-06-15] MEDS: dilTIAZem HCL 125 MG in 0.9 % SODIUM CHLORIDE 100 ML IV (06:15)
--- NOTE | 2023-06-15 07:57 | PM.HP ---
H&P: HPI History of Present Illness Chief complaint: Chest Pain, Hx A-fib, A-FIB with RVR Narrative: patient is a 57-year-old male with past medical history of alcoholism, tobacco abuse, hypertension, and new onset atrial fibrillation with RVR diagnosed in April. Patient was admitted to the hospital in April for similar symptoms of palpitations, heart racing, lightheadedness, dizziness and some shortness of breath. He was transferred to [facility] under the care of cardiology for a transesophageal echocardiogram and cardioversion. He reports that they have tried twice for unsuccessful cardioversion. The last was 06/10/23 and he began having symptoms again the following day.yesterday he reports the heart pounding, racing, dizziness which brought into the Emergency Room. He notes that he has been compliant with his medications, although he does admit to continuing to use alcohol. Last drink was prior to admission he drinks approximately 10-11 beers a day. Patient was admitted to the ICU and was placed on a diltiazem drip. Two doses of amiodarone was given IV in the Emergency Room with no success to convert rhythm. Patient continues to follow with [facility] for his ongoing cardiac care. Last echocardiogram showed severely reduced ejection fraction of 25-30 percent with severe biatrial enlargement and moderate to severe mitral regurg and tricuspid regurg with moderately elevated right ventricular pressure.per Emergency Room notes cardiology was notified and they recommended admission. Review of Systems ROS Narrative ROS: a complete review of systems were reviewed with patient and are positive as below or listed in History of Chief Complaint. General: no fever, chills, night sweats Head: no headache, trauma, visual changes, nausea or vomiting Skin: no reported rashes, itching or sores Eyes: no blurriness of vision Ears: no reported hearing loss, vertigo, earache, or tinnitus Throat: no sore throat, hoarseness, swelling of neck, or tongue pain Heart: no chest pain, but heart racing Lungs: shortness of breath no cough GI: no diarrhea or vomiting/nausea Urinary: no urinary urgency, frequency or pain Neuro: no numbness or tingling HEM: no bleeding issues or bruising ENDO: no thyroid problems Psych: no anxiety or depression [facility] Medical History (Updated 06/15/23 @ 10:00 by Hilda Ro DO) Surgical History Family History Mother Family history of cancer Social History Within the past year, how often did you have a drink containing alcohol: 4 or more times a week Within the past year, how many standard drinks containing alcohol did you have on a typical day: 10 or more Within the past year, how often did you have six or more drinks on one occasion: daily or almost daily Total score: 12 Score interpretation: A score of 4 or more indicates drinking is likely to affect patient's safety. Smoking status: Current every day smoker Non-prescribed substance use: denies use Highest level of school completed/degree received: 12th grade, no diploma Are you now , , , , never or living with a partner: In a typical week, how many times do you talk on the telephone with family, friends, or neighbors: 3 or more times per week How often do you get together with friends or relatives: twice per week How often do you attend oriental orthodox or restorationism services: never Do you belong to any clubs or organizations such as oriental orthodox groups unions, fraternal or athletic groups, or school groups: no Total score: 1 Score interpretation: A score of less than or equal to 1 indicates the most socially isolated. Little interest or pleasure in doing things: not at all Feeling down, depressed, or hopeless: not at all Feel stressed/tense/nervous/anxious/difficulty sleeping: not at all Do you think of yourself as: straight/heterosexual Gender Identity: male Meds Home Medications and Allergies Home Medications Medication Instructions Recorded Confirmed Type amiodarone 200 mg tablet 200 mg PO Q12H 06/14/23 06/14/23 History apixaban 5 mg tablet (Eliquis) 5 mg PO Q12H 06/14/23 06/14/23 History dapagliflozin propanediol 10 mg 10 mg PO DAILY 06/14/23 06/14/23 History tablet (Farxiga) furosemide 20 mg tablet 20 mg PO DAILY 06/14/23 06/14/23 History metoprolol succinate 100 mg 100 mg PO DAILY 06/14/23 06/14/23 History tablet,extended release 24 hr pantoprazole 40 mg tablet,delayed 40 mg PO DAILY 06/14/23 06/14/23 History release sacubitril 24 mg-valsartan 26 mg 1 tab PO BID 06/14/23 06/14/23 History tablet (Entresto) spironolactone 25 mg tablet 25 mg PO DAILY 06/15/23 06/15/23 History (Aldactone) thiamine HCl (vitamin B1) 100 mg 100 mg PO DAILY 06/15/23 06/15/23 History tablet Allergies Allergy/AdvReac Type Severity Reaction Status Date / Time No Known Drug Allergies Allergy Verified 04/19/23 14:57 Exam Narrative Exam Narrative: General: Patient is alert, and oriented to person, place and time with normal affect, proper hygiene Skin: no visible rashes, or ulcers Head: atraumatic, acephalic Eyes: PERRLA, no nystagmus present, conjunctiva clear, no scleral icterus Ears: normal gross auditory acuity Nose: symmetric, no discharge, no maxillary or frontal sinus tenderness Neck: no masses palpated, normal thyroid, no JVD or audible carotid bruits Heart: irregular rate and rhythm, no murmurs/rubs/gallops Lungs: no audible wheezes, crackles and normal breath sounds all lung granados Abdomen: Normal audible bowel sounds, no distension, No palpable masses, no organomegaly, no rebound/guarding/ or rigidity Musculoskeletal: muscle atrophy noted, ROM is limited due to being in hospital bed, no swelling bilateral lower extremities Vascular: Normal carotid, radial, femoral, posterior tibial, and dorsalis pedis pulses Lymph: no supraclavicular, axillary, or anterior/posterior cervical adenopathy Neuro: CN II-X grossly intact, normal sensation upper and lower extremities Constitutional Vital Signs, click to edit/add: Last Vital Signs Temp 98 F 06/14/23 22:25 Pulse 73 06/15/23 06:30 Resp 13 06/15/23 06:30 BP 102/83 06/15/23 06:30 Pulse Ox 97 06/14/23 22:25 O2 Del Method Room Air 06/14/23 22:25 Results Labs Labs: Short CBC 06/14/23 06/14/23 Range/Units 04:09 16:50 WBC 6.0 7.3 (4.0-11.0) 10^3/uL Hgb 13.9 L 15.4 (14.0-18.0) g/dL Hct 41.2 L 44.2 (42.0-54.0) % Plt Count 159 180 (150-450) 10^3/uL BMP 06/14/23 16:50 Sodium 138 Potassium 3.0 L Chloride 101 Carbon Dioxide 27.3 BUN 10.0 Creatinine 1.27 Glucose 98 Calcium 9.5 Liver Function 06/14/23 Range/Units 16:50 Total Bilirubin 1.7 H (0.2-1.0) mg/dL AST 26 (15-37) U/L ALT 27 (16-63) U/L Alkaline Phosphatase 63 (46-116) U/L Albumin 4.0 (3.4-5.0) g/dL Assessment and Plan Assessment and Plan (1) Atrial fibrillation with rapid ventricular response: Assessment and Plan: patient was given a trial of amiodarone IV 300 mg without much change, so patient was placed in ICU on a Cardizem drip which seems to be improving his heart rate. Heart rate has been less than a hundred. We'll continue I will requests for anticoagulation, will increase metoprolol for further rate control. Due to E's of 25-30 percent we'll monitor her Cardizem closely. An attempt to get off drip today. We'll also continue amiodarone. Will discuss case with on-call cardiology for further plan of care. Cardiac cardiology consult was ordered however we don't have inpatient consultation available today. (2) Acute on chronic HFrEF (heart failure with reduced ejection fraction): Assessment and Plan: continue Lasix daily, metoprolol, ARB and spironolactone, recent echocardiogram was reviewed and cardiology note patient appears in no acute overload at this time. (3) Hypertension: Assessment and Plan: continue home medications (4) Hypothyroidism (acquired): Assessment and Plan: elevated thyroid-stimulating hormone will start on an levothyroxine 50 ?g daily (5) Alcoholism: Assessment and Plan: discussed the need to stop drinking as this is affecting his heart. Will see if social contact worker can give him some options and support for quitting tomorrow. (6) Tobacco abuse: Assessment and Plan: has been cutting down but has not completely stopped smoking Plan patient is full code Will continue all eliquis for deep vein thrombosis prophylaxis Patient is an inpatient status and is expected to stay more than two midnights
[2023-06-15] MEDS: THIAMINE MONONITRATE (VIT B1) 100 MG TABLET PO (08:36)
[2023-06-15] MEDS: FUROSEMIDE 20 MG TABLET PO (08:36)
[2023-06-15] MEDS: SACUBITRIL/VALSARTAN 1 EACH TABLET 1 TAB PO ×2 (08:36→22:14)
[2023-06-15] MEDS: METOPROLOL SUCCINATE 100 MG TAB.ER.24H PO (08:36)
[2023-06-15] MEDS: AMIODARONE HCL 200 MG TABLET PO ×2 (08:36→22:14)
[2023-06-15] MEDS: POTASSIUM CHLORIDE 10 MEQ ER TABLET 20 MEQ PO ×2 (08:36→22:14)
[2023-06-15] MEDS: OMEPRAZOLE 40 MG CAPSULE.DR PO (08:36)
[2023-06-15] MEDS: SPIRONOLACTONE 25 MG TABLET PO (08:37)
[2023-06-15] MEDS: CANAGLIFLOZIN 100 MG TABLET 300 MG PO (09:39)
[2023-06-15] MEDS: FOLIC ACID 1 MG TABLET PO (09:40)
[2023-06-15 11:51] LABS: Glucometer 155 mg/dL (74-106)
[2023-06-15] MEDS: DIGOXIN 125 MCG TABLET PO ×2 (13:27→20:38)
[2023-06-15 17:13] LABS: Glucometer 154 mg/dL (74-106)
[2023-06-15 22:46] LABS: Glucometer 134 mg/dL (74-106)
[2023-06-16] VITALS (116 sets, daily range): BP systolic 78–112; BP diastolic 55–78; PULSE 79–153; RESP 12–49; TEMP 36.5–37.1; O2SAT 95–99
[2023-06-16] MEDS: DIGOXIN 125 MCG TABLET PO ×2 (02:06→08:04)
[2023-06-16 05:05] LABS: Basophils Absolute Auto 0.1 10^3/uL (0.0-0.1); Basophils Percent Auto 0.7 % (0.2-2.0); Eosinophils Absolute Auto 0.1 10^3/uL (0.0-0.7); Hematocrit 44.5 % (42.0-54.0); Hemoglobin 14.6 g/dL (14.0-18.0); Immature Granulocytes Abs Auto 0.01 10^3/uL (0.00-0.03); Immature Granulocytes Pct Auto 0.1 % (0.0-0.5); Lymphocytes Absolute Auto 2.3 10^3/uL (1.2-3.8); Mean Corpuscular HGB Conc 32.8 g/dL (29.9-35.2); Mean Corpuscular Hemoglobin 30.7 pg (25.9-34.0); Mean Corpuscular Volume 93.5 fL (80.0-94.0); Mean Platelet Volume 10.9 fL (9.5-13.5); Monocytes Absolute Auto 0.6 10^3/uL (0.3-0.8); Monocytes Percent Auto 8.4 % (1.7-12.0); Neutrophils Absolute Auto 3.8 10^3/uL (1.4-6.5); Neutrophils Percent Auto 55.8 % (43.0-75.0); Platelet Count 144 10^3/uL (150-450); Red Blood Count 4.76 10^6/uL (4.70-6.10); Red Cell Distribution Width 14.8 % (11.0-15.0); White Blood Count 6.8 10^3/uL (4.0-11.0)
[2023-06-16 05:53] LABS: Free T4 1.01 ng/dL (0.76-1.46)
[2023-06-16 05:54] LABS: Alanine Aminotransferase 21 U/L (16-63); Albumin Globulin Ratio 1.1; Albumin Level 3.2 g/dL (3.4-5.0); Alkaline Phosphatase 60 U/L (46-116); Aspartate Amino Transferase 13 U/L (15-37); BUN Creatinine Ratio 13.2; Calcium 8.8 mg/dL (8.5-10.1); Carbon Dioxide 25.1 mmol/L (21.0-32.0); Chloride 106 mmol/L (98-107); Estimated GFR (African America >60 (>=60); Estimated GFR (Non-African Ame >60 (>=60); Glucose 124 mg/dL (74-106); Potassium 4.1 mmol/L (3.5-5.1); Sodium 138 mmol/L (136-145); Thyroid Stimulating Hormone 11.674 uIU/mL (0.358-3.740); Total Protein 6.2 g/dL (6.4-8.2)
[2023-06-16] MEDS: LEVOTHYROXINE SODIUM 25 MCG TABLET 50 MCG PO (06:09)
[2023-06-16] MEDS: CANAGLIFLOZIN 100 MG TABLET 300 MG PO (08:03)
[2023-06-16] MEDS: METOPROLOL SUCCINATE 100 MG TAB.ER.24H PO (08:04)
[2023-06-16] MEDS: FUROSEMIDE 20 MG TABLET PO (08:04)
[2023-06-16] MEDS: AMIODARONE HCL 200 MG TABLET PO ×2 (08:04→21:49)
[2023-06-16] MEDS: SACUBITRIL/VALSARTAN 1 EACH TABLET 1 TAB PO (08:04)
[2023-06-16] MEDS: OMEPRAZOLE 40 MG CAPSULE.DR PO (08:04)
[2023-06-16] MEDS: FOLIC ACID 1 MG TABLET PO (08:04)
[2023-06-16 08:05] LABS: Glucometer 107 mg/dL (74-106)
[2023-06-16] MEDS: THIAMINE MONONITRATE (VIT B1) 100 MG TABLET PO (08:05)
[2023-06-16] MEDS: APIXABAN 5 MG TABLET PO ×2 (08:05→21:16)
[2023-06-16] MEDS: POTASSIUM CHLORIDE 10 MEQ ER TABLET 20 MEQ PO ×2 (08:05→21:18)
[2023-06-16] MEDS: SPIRONOLACTONE 25 MG TABLET PO (08:09)
--- NOTE | 2023-06-16 08:16 | P.PN_ITS ---
Progress Note: Subjective Subjective Interval history: patient is a 57-year-old male with past medical history of alcoholism, tobacco abuse, hypertension, and new onset atrial fibrillation with RVR diagnosed in April. Patient was admitted to the hospital in April for similar symptoms of palpitations, heart racing, lightheadedness, dizziness and some shortness of breath. He was transferred to [facility] under the care of cardiology for a transesophageal echocardiogram and cardioversion. He reports that they have tried twice for unsuccessful cardioversion. The last was 06/10/23 and he began having symptoms again the following day. He reports the heart pounding, racing, dizziness which brought into the Emergency Room. He notes that he has been compliant with his medications, although he does admit to continuing to use alcohol. Last drink was prior to admission he drinks approximately 10-11 beers a day. Patient was admitted to the ICU and was placed on a diltiazem drip. Two doses of amiodarone was given IV in the Emergency Room with no success to convert rhythm. Patient continues to follow with [facility] for his ongoing cardiac care. Last echocardiogram showed severely reduced ejection fraction of 25-30 percent with severe biatrial enlargement and moderate to severe mitral regurg and tricuspid regurg with moderately elevated right ventricular pressure.per I spoke with Dr. Hayward yesterday who recommended weaning off dilt drip after loading with digoxin, then digoxin daily. He is still in A-fib this morning but rate has been controlled. He is not symptomatic at this time. Exam Narrative Exam Narrative: General: Patient is alert, and oriented to person, place and time with normal affect, proper hygiene Skin: no visible rashes, or ulcers Head: atraumatic, acephalic Eyes: PERRLA, no nystagmus present, conjunctiva clear, no scleral icterus Ears: normal gross auditory acuity Nose: symmetric, no discharge, no maxillary or frontal sinus tenderness Neck: no masses palpated, normal thyroid, no JVD or audible carotid bruits Heart: irregular rate and rhythm, no murmurs/rubs/gallops Lungs: no audible wheezes, crackles and normal breath sounds all lung granados Abdomen: Normal audible bowel sounds, no distension, No palpable masses, no organomegaly, no rebound/guarding/ or rigidity Musculoskeletal: muscle atrophy noted, ROM is limited due to being in hospital bed, no swelling bilateral lower extremities Vascular: Normal carotid, radial, femoral, posterior tibial, and dorsalis pedis pulses Lymph: no supraclavicular, axillary, or anterior/posterior cervical adenopathy Neuro: CN II-X grossly intact, normal sensation upper and lower extremities Constitutional Vital Signs, click to edit/add: Last Vital Signs Temp 98.1 F 06/16/23 06:12 Pulse 113 H 06/16/23 08:04 Resp 16 06/16/23 06:30 BP 102/78 06/16/23 06:12 Pulse Ox 95 06/16/23 06:12 O2 Del Method Room Air 06/15/23 16:00 Progress Note: Objective Labs Labs: Short CBC 06/16/23 Range/Units 04:53 WBC 6.8 (4.0-11.0) 10^3/uL Hgb 14.6 (14.0-18.0) g/dL Hct 44.5 (42.0-54.0) % Plt Count 144 L (150-450) 10^3/uL BMP 06/16/23 04:53 Sodium 138 Potassium 4.1 Chloride 106 Carbon Dioxide 25.1 BUN 16.0 Creatinine 1.21 Glucose 124 H Calcium 8.8 Liver Function 06/16/23 Range/Units 04:53 Total Bilirubin 1.0 (0.2-1.0) mg/dL AST 13 L (15-37) U/L ALT 21 (16-63) U/L Alkaline Phosphatase 60 (46-116) U/L Albumin 3.2 L (3.4-5.0) g/dL Progress Note: A&P Assessment and Plan (1) Atrial fibrillation with rapid ventricular response: (2) Acute on chronic HFrEF (heart failure with reduced ejection fraction): (3) Hypertension: (4) Hypothyroidism (acquired): (5) Alcoholism: (6) Tobacco abuse: Plan (1) Atrial fibrillation with rapid ventricular response: Assessment and Plan: patient was given a trial of amiodarone IV 300 mg without much change, so patient was placed in ICU on a Cardizem drip which seems to be improving his heart rate. Heart rate has been less than a hundred. Weaned off dilt drip now after loading with digoxin 125mcg PO [id number] x 4 doses and will start daily, continue amiodarone, metoprolol, may also increase night time metoprolol. Will need Ablation. Waiting on cards recs on outpatient vs inpatient ablation. (2) Acute on chronic HFrEF (heart failure with reduced ejection fraction): Assessment and Plan: continue Lasix daily, metoprolol, ARB and spironolactone, recent echocardiogram was reviewed and cardiology note; patient appears in no acute overload at this time. (3) Hypertension: Assessment and Plan: continue home medications (4) Hypothyroidism (acquired): Assessment and Plan: elevated thyroid-stimulating hormone will start on an levothyroxine 50 ?g daily (5) Alcoholism: Assessment and Plan: discussed the need to stop drinking as this is affecting his heart. Will see if social science manager can give him some options and support for quitting (6) Tobacco abuse: Assessment and Plan: has been cutting down but has not completely stopped smoking Plan patient is full code Will continue eliquis for deep vein thrombosis prophylaxis Patient is an inpatient status and is expected to stay more than two midnights
--- NOTE | 2023-06-16 11:27 | CM.NOTE ---
Rounds made with Dr. Ro, awaiting cardiology to see pt today for further recommendations.
[2023-06-16 12:22] LABS: Glucometer 145 mg/dL (74-106)
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
--- NOTE | 2023-06-16 14:10 | PC.NURSE ---
1400- Spoke with who consulted with cardiology DIAMOND SORTER who rounded and physician that pt follows with routine. They all agree to transfer pt for further cardiac workup. is in the process of making arrangements and will contact this nurse with further information.
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
[2023-06-16 16:08] LABS: Glucometer 109 mg/dL (74-106)
[2023-06-16 21:31] LABS: Glucometer 113 mg/dL (74-106)
[2023-06-17] VITALS (58 sets, daily range): BP systolic 103–106; BP diastolic 70–84; PULSE 93–169; RESP 4–20; TEMP 36.4–36.7; O2SAT 95
[2023-06-17 05:25] LABS: Basophils Absolute Auto 0.1 10^3/uL (0.0-0.1); Basophils Percent Auto 0.8 % (0.2-2.0); Eosinophils Absolute Auto 0.1 10^3/uL (0.0-0.7); Eosinophils Percent Auto 1.9 % (0.9-7.0); Hematocrit 43.9 % (42.0-54.0); Hemoglobin 14.4 g/dL (14.0-18.0); Immature Granulocytes Abs Auto 0.01 10^3/uL (0.00-0.03); Immature Granulocytes Pct Auto 0.2 % (0.0-0.5); Lymphocytes Percent Auto 32.6 % (20.5-60.0); Mean Corpuscular HGB Conc 32.8 g/dL (29.9-35.2); Mean Corpuscular Hemoglobin 30.8 pg (25.9-34.0); Mean Platelet Volume 11.2 fL (9.5-13.5); Monocytes Absolute Auto 0.6 10^3/uL (0.3-0.8); Monocytes Percent Auto 9.6 % (1.7-12.0); Neutrophils Absolute Auto 3.4 10^3/uL (1.4-6.5); Neutrophils Percent Auto 54.9 % (43.0-75.0); Platelet Count 137 10^3/uL (150-450); Red Blood Count 4.67 10^6/uL (4.70-6.10); Red Cell Distribution Width 14.7 % (11.0-15.0); White Blood Count 6.3 10^3/uL (4.0-11.0)
[2023-06-17 05:42] LABS: Alanine Aminotransferase 18 U/L (16-63); Albumin Globulin Ratio 0.8; Albumin Level 2.7 g/dL (3.4-5.0); Alkaline Phosphatase 53 U/L (46-116); Anion Gap 10.3; Aspartate Amino Transferase 12 U/L (15-37); BUN Creatinine Ratio 15.4; Bilirubin Total 0.5 mg/dL (0.2-1.0); Calcium 8.5 mg/dL (8.5-10.1); Carbon Dioxide 25.8 mmol/L (21.0-32.0); Chloride 108 mmol/L (98-107); Estimated GFR (African America >60 (>=60); Estimated GFR (Non-African Ame >60 (>=60); Globulin 3.2 g/dL; Glucose 123 mg/dL (74-106); Potassium 4.1 mmol/L (3.5-5.1); Sodium 140 mmol/L (136-145); Total Protein 5.9 g/dL (6.4-8.2)
[2023-06-17] MEDS: FENTANYL CITRATE/PF 100 MCG/2 ML VIAL 25 MCG IV (09:20)
--- NOTE | 2023-06-17 09:44 | ECG_ITS ---
[facility] Test Date: 2023-06-17 Pat Name: BERNIE CANO Department: Room: [facility] Gender: Male [employer]: : [id number] Requested By: GURWINDER DAVIS Order Number: [id number] Reading MD: RIANNA LOWE Measurements Intervals [place] Rate: 139 P: -[id number] TX: -[id number] QRS: 90 QRSD: 88 T: -60 QT: 308 QTc: 389 Interpretive Statements 1250 Atrial fib-flutter 4068 Nonspecific abnormality 9140 abnormal rhythm ECG Electronically Signed On 06-18-2023 7:06:58 EDT by RIANNA LOWE
[2023-06-17] MEDS: METOPROLOL SUCCINATE 100 MG TAB.ER.24H PO (10:01)
[2023-06-17] MEDS: CANAGLIFLOZIN 100 MG TABLET 300 MG PO (10:02)
[2023-06-17] MEDS: SPIRONOLACTONE 25 MG TABLET PO (10:02)
[2023-06-17] MEDS: OMEPRAZOLE 40 MG CAPSULE.DR PO (10:03)
[2023-06-17] MEDS: THIAMINE MONONITRATE (VIT B1) 100 MG TABLET PO (10:03)
[2023-06-17] MEDS: FUROSEMIDE 20 MG TABLET PO (10:03)
[2023-06-17] MEDS: POTASSIUM CHLORIDE 10 MEQ ER TABLET 20 MEQ PO (10:03)
[2023-06-17] MEDS: AMIODARONE HCL 200 MG TABLET PO (10:03)
[2023-06-17] MEDS: FOLIC ACID 1 MG TABLET PO (10:04)
[2023-06-17] MEDS: MIDAZOLAM HCL 2 MG/2 ML VIAL IV (10:05)
[2023-06-17] MEDS: SACUBITRIL/VALSARTAN 1 EACH TABLET 1 TAB PO (10:05)
[2023-06-17] MEDS: APIXABAN 5 MG TABLET PO (10:09)
[2023-06-17] MEDS: DIGOXIN 125 MCG TABLET PO (10:09)
--- NOTE | 2023-06-17 10:53 | P.DS_ITS ---
DS: Providers Provider Date of admission: 06/15/23 07:54 Primary care physician: Non-Staff Physician, Admitting clinician: Hemant Bethea Consults: 06/15/23 07:55 Consult to Cardiology Routine Consulting Provider: Uday Luo Reason for consultation: a-fib with rvr, recent cardioversion at [facility] Has provider been notified: No Attending physician on discharge: Hilda Ro DS: Diagnosis Discharge Diagnosis (1) Atrial fibrillation with rapid ventricular response: (2) Acute on chronic HFrEF (heart failure with reduced ejection fraction): (3) Hypertension: (4) Hypothyroidism (acquired): (5) Alcoholism: (6) Tobacco abuse: DS: Summary Hospital Course Hospital Course: patient is a 57-year-old male with past medical history of alcoholism, tobacco abuse, hypertension, and new onset atrial fibrillation with RVR diagnosed in April. Patient was admitted to the hospital in April for similar symptoms of palpitations, heart racing, lightheadedness, dizziness and some shortness of breath. He was transferred to [facility] under the care of cardiology for a transesophageal echocardiogram and cardioversion. He reports that they have tried twice for unsuccessful cardioversion. The last was 06/10/23 and he began having symptoms again the following day. He reports the heart pounding, racing, dizziness which brought into the Emergency Room. He notes that he has been compliant with his medications, although he does admit to continuing to use alcohol. Last drink was prior to admission he drinks approximately 10-11 beers a day. Patient was admitted to the ICU and was placed on a diltiazem drip. Two dos es of amiodarone was given IV in the Emergency Room with no success to convert rhythm. Patient continues to follow with [facility] for his ongoing cardiac care. Last echocardiogram showed severely reduced ejection fraction of 25-30 percent with severe biatrial enlargement and moderate to severe mitral regurg and tricuspid regurg with moderately elevated right ventricular pressure.Digoxin did not help to control rate or change rhythm, we made the decision to keep patient here overnight for cardioversion this morning, performed by Dr. Luo at 0900, no success. Plans to transfer to [facility] for ablation. Transfer process started, accepting physician is hospitalist, Dr. Fernandez, cardiology consulted for ablation. Transfer KAILEE. HR 120-130, still in Afib with RVR. Time Spent with Patient Time attestation: Total time spent providing and/or coordinating discharge services: Exam Narrative Exam Narrative: General: Patient is alert, and oriented to person, place and time with normal affect, proper hygiene Skin: no visible rashes, or ulcers Head: atraumatic, acephalic Heart: irregular rate and rhythm, no murmurs/rubs/gallops Lungs: no audible wheezes, crackles and normal breath sounds all lung granados Abdomen: Normal audible bowel sounds, no distension, No palpable masses, no organomegaly, no rebound/guarding/ or rigidity Musculoskeletal: muscle atrophy noted, ROM is limited due to being in hospital bed, no swelling bilateral lower extremities Vascular: Normal carotid, radial, femoral, posterior tibial, and dorsalis pedis pulses Lymph: no supraclavicular, axillary, or anterior/posterior cervical adenopathy Neuro: CN II-X grossly intact, normal sensation upper and lower extremities Constitutional Vital Signs, click to edit/add: Last Vital Signs Temp 98 F 06/17/23 09:15 Pulse 126 H 06/17/23 10:09 Resp 14 06/17/23 08:20 BP 106/70 06/17/23 09:15 Pulse Ox 95 06/17/23 00:30 O2 Del Method Room Air 06/17/23 00:30 DS: Data Data Completed and Pending Labs on day of discharge: Labs from last 24 hours 06/17/23 06/16/23 06/16/23 05:05 21:30 16:06 WBC 6.3 RBC 4.67 L Hgb 14.4 Hct 43.9 MCV 94.0 MCH 30.8 MCHC 32.8 RDW 14.7 Plt Count 137 L MPV 11.2 Neut % (Auto) 54.9 Lymph % (Auto) 32.6 Fergus % (Auto) 9.6 Eos % (Auto) 1.9 Baso % (Auto) 0.8 Neut # (Auto) 3.4 Lymph # (Auto) 2.0 Fergus # (Auto) 0.6 Eos # (Auto) 0.1 Baso # (Auto) 0.1 Abs Immat Gran (auto) 0.01 Imm/Tot Granulo (auto) 0.2 Sodium 140 Potassium 4.1 Chloride 108 H Carbon Dioxide 25.8 Anion Gap 10.3 BUN 18.0 Creatinine 1.17 Est GFR ( Amer) >60 Est GFR (Non-Af Amer) >60 BUN/Creatinine Ratio 15.4 Glucose 123 H Calcium 8.5 Total Bilirubin 0.5 AST 12 L ALT 18 Alkaline Phosphatase 53 Total Protein 5.9 L Albumin 2.7 L Globulin 3.2 Albumin/Globulin Ratio 0.8 POC Glucose 113 H 109 H 06/16/23 12:20 WBC RBC Hgb Hct MCV MCH MCHC RDW Plt Count MPV Neut % (Auto) Lymph % (Auto) Fergus % (Auto) Eos % (Auto) Baso % (Auto) Neut # (Auto) Lymph # (Auto) Fergus # (Auto) Eos # (Auto) Baso # (Auto) Abs Immat Gran (auto) Imm/Tot Granulo (auto) Sodium Potassium Chloride Carbon Dioxide Anion Gap BUN Creatinine Est GFR ( Amer) Est GFR (Non-Af Amer) BUN/Creatinine Ratio Glucose Calcium Total Bilirubin AST ALT Alkaline Phosphatase Total Protein Albumin Globulin Albumin/Globulin Ratio POC Glucose 145 H Discharge Plan Discharge Disposition: [facility] Condition: Fair Discharge location: transfer to [facility] for ablation, Dr. Luo and Dr. Fernandez accepting docs
--- NOTE | 2023-06-17 11:13 | CM.NOTE ---
Rounds made with Dr. Ro, Dr. Luo at bedside for cardioversion. Cardioversion not successful, pt will be transferred to [facility].
--- NOTE | 2023-06-17 13:01 | W.PM.PROCNOT ---
Date of procedure: 06/17/23 Pre-op diagnosis: Afib with RVR Procedure: DIRECT CARDIOVERSION PROCEDURE NOTE? Date: 06/17/2023. ? Type of procedure: DC Cardioversion. ? Performed by: Uday Luo MD ? Informed consent: Signed by patient. ? Indication: 57 y.o.?male?presenting with PMH of persistent atrial fibrillation s/p DCCV 1 month ago presents with Afib with RVR. He also dias dependence on alcohol on daily basis. He had been compliant with his Amiodarone and had been tolerating well. He is on chronic anticoagulation with Eliquis which he had been compliant and had not missed any doses.??He had been on uninterrupted anticoagulation for minimum of 6 weeks. ?Hence, GANGA was deferred. ? ? Preparation and technique: Patient was brought into the procedure room. After an informed consent was obtained following a discussion with the patient where I explained the risk and benefit of the procedure that is not limited to skin coto, fluid in the lungs, heart attack, stroke, or even , though that is very rare. Patches were placed in anteroposterior direction and once patient was made comfortable with Versed 2mg and Fentanyl 25mcg. Following sedation, the patient underwent synchronized cardioversion using 200J (max on this device) which failed to converted to sinus rhythm. Defibrillation was reattempted after repositioning of patches and 200J which also failed to convert. Post procedure, the patient was stable. ?No complications noted. ? Plan: Continue anticoagulation and consider ablation folowing transfer to [facility]. ? Uday Luo MD Cardiac Electrophysiology Surgeon: Uday Luo Estimated blood loss (mL): 0 Pathology: none sent Condition: stable Disposition: ICU
== END 2023-06-17 12:29 | disposition short-term general hospital (02) | DRG 201 ==
LOC: ER 20:37 → ICU 22:02
PROVIDERS: Emergency Medicine Emergency Medical Services; Admitting Provider Internal Medicine; Emergency Provider Internal Medicine; Visit Provider Family Medicine
DX: I48.19 Other persistent atrial fibrillation (principal); I11.0 Hypertensive heart disease with heart failure; I50.23 Acute on chronic systolic (congestive) heart failure; E03.9 Hypothyroidism, unspecified; F17.210 Nicotine dependence, cigarettes, uncomplicated; F10.230 Alcohol dependence with withdrawal, uncomplicated; Z79.01 Long term (current) use of anticoagulants; Z79.899 Other long term (current) drug therapy; Z98.890 Other specified postprocedural states
CPT/HCPCS: 36415; 71045; 80053; 82948; 83880; 84439; 84443; 84484; 85025; 85610; 85730; 93005; 96365; 96366; 96375; 96376; 99285; G0378; Q3014

== ENCOUNTER 2023-09-08 15:15 | Outpatient (OUT) | payer OTHER, SELFPAY ==
--- NOTE | 2023-09-08 15:53 | CA_ITS ---
Patient Name Site Name BERNIE CANO [facility] Account No Medical Record Number Age Sex Date Time [id number] [facility]:[id number] 57 M 09/08/2023 15:28 At the Request Of Yvonne Burciaga ECHOCARDIOGRAM REPORT PROCEDURE: CA ECHO LIMITED INDICATIONS: Chronic CHF COMPARISON: None. DESCRIPTION: Limited ECHOCARDIOGRAM Real-time transthoracic echocardiography with 2D and M-mode performed. QUALITY: Technical quality was good. LEFT VENTRICLE: Normal chamber size. Mild concentric left ventricular hypertrophy. Global left ventricular systolic function is mildly decreased. LV EF: Calculated left ventricular ejection fraction is 43%. Estimated ejection fraction is 40 to 45%. DIASTOLIC: ATRIAL SEPTUM: LEFT ATRIUM: Mild dilatation. RIGHT ATRIUM: Mild dilatation. RIGHT VENTRICLE: Normal chamber size. Normal right ventricular systolic function. TRICUSPID VALVE: Normal mobility and thickness. MITRAL VALVE: Mildly thickened with normal mobility. AORTIC VALVE: Normal trileaflet appearance. Normal leaflet mobility. AORTIC ROOT: Normal diameter and appearance. PULMONIC VALVE: Normal thickness and mobility. PERICARDIUM: No evidence of pericardial effusion. IVC: Collapses with inspirations. Normal size. PLEURA: CONCLUSION: 1. Mild concentric left ventricular hypertrophy with global hypokinesis and mildly reduced systolic function. LVEF is estimated at 40 to 45%. 2. Normal right ventricular size and systolic function. 3. Mild biatrial dilatation. 4. No pericardial effusion. 5. Limited study performed with no Doppler interrogation as requested. Adult Echocardiography Procedure Report Left Ventricle LVEDD (3.7 - 5.6 cm): 5.23 cm LVESD (2.2 - 4.0 cm): 4.07 cm LVIVS thickness (0.6 - 1.2 cm): 1.22 cm LVPW thickness (0.5 - 1.0 cm): 1.12 cm LVOT Diameter 1.93 cm Left Ventricular Ejection Fraction: 40-45 % Left Atrium LA Volume Index (2D A2C): 33.72 ml/m2 Left Atrium Systolic Dimension: 3.40 cm Mitral Valve Right Ventricle RV Internal Diastolic Dimension: 3.75 cm Aorta AO Root Diam: 3.39 cm Aortic Valve Tricuspid Valve Pulmonic Valve Right Atrium Right Atrium Systolic Pressure: 57.29 ml, 57.29 ml Dictated by: Walt Ballard M.D. on 09/10/2023 at 19:05 Approved by: Walt Ballard M.D. on 09/10/2023 at 19:09
[2023-09-08 15:59] LABS: Basophils Percent Auto 0.7 % (0.2-2.0); Eosinophils Absolute Auto 0.1 10^3/uL (0.0-0.7); Eosinophils Percent Auto 2.2 % (0.9-7.0); Hematocrit 42.3 % (42.0-54.0); Hemoglobin 14.5 g/dL (14.0-18.0); Immature Granulocytes Abs Auto 0.01 10^3/uL (0.00-0.03); Immature Granulocytes Pct Auto 0.2 % (0.0-0.5); Lymphocytes Absolute Auto 2.2 10^3/uL (1.2-3.8); Lymphocytes Percent Auto 36.8 % (20.5-60.0); Mean Corpuscular HGB Conc 34.3 g/dL (29.9-35.2); Mean Corpuscular Hemoglobin 29.9 pg (25.9-34.0); Mean Corpuscular Volume 87.2 fL (80.0-94.0); Mean Platelet Volume 9.5 fL (9.5-13.5); Monocytes Absolute Auto 0.5 10^3/uL (0.3-0.8); Monocytes Percent Auto 8.3 % (1.7-12.0); Neutrophils Absolute Auto 3.1 10^3/uL (1.4-6.5); Neutrophils Percent Auto 51.8 % (43.0-75.0); Platelet Count 221 10^3/uL (150-450); Red Blood Count 4.85 10^6/uL (4.70-6.10); White Blood Count 5.9 10^3/uL (4.0-11.0)
[2023-09-08 16:17] LABS: Alanine Aminotransferase 14 U/L (16-63); Albumin Globulin Ratio 1.1; Albumin Level 3.9 g/dL (3.4-5.0); Alkaline Phosphatase 67 U/L (46-116); Anion Gap 10.6; Aspartate Amino Transferase 13 U/L (15-37); Bilirubin Total 0.6 mg/dL (0.2-1.0); Calcium 9.7 mg/dL (8.5-10.1); Carbon Dioxide 30.9 mmol/L (21.0-32.0); Chloride 106 mmol/L (98-107); Estimated GFR (African America >60 (>=60); Estimated GFR (Non-African Ame >60 (>=60); Globulin 3.5 g/dL; Glucose 94 mg/dL (74-106); Potassium 4.5 mmol/L (3.5-5.1); Sodium 143 mmol/L (136-145); Total Protein 7.4 g/dL (6.4-8.2)
== END 2023-09-08 15:16 | disposition home or self-care (01) ==
LOC: CARD 15:15
PROVIDERS: Visit Provider Nurse Practitioner Acute Care
DX: I50.22 Chronic systolic (congestive) heart failure (principal)
CPT/HCPCS: 36415; 80053; 85025; 93308; 93356